=== PATIENT | female | born 1930 | race Two or more races ===

== ENCOUNTER 2018-04-01 17:08 | Inpatient (IN) | payer MEDICARE, MEDICAID ==
[~2018-04-01] VITALS: Ht 170.2 cm; Wt 52.6 kg
[2018-04-01 17:15] VITALS: BP 134/74
[2018-04-01] MEDS ORDERED: levETIRAcetam 500 MG in D5W 110 ML IV ONE (17:15)
--- NOTE | 2018-04-01 17:21 | Emergency Room Report ---
History of Present Illness General Chief Complaint: Seizure Source: EMS, Caregiver Present Illness HPI The patient was brought in for seizure. According to caregiver this lasted 10 minutes. She has a prior history of seizures. She is supposed be on Keppra. Last seizure was one year ago. Paramedics checked a blood glucose which was 170 in the field. They assessed her [place] coma scale at 4 (1, 1, 3). Usually according to the housing director she is awake and alert. There is no head trauma or incontinence. There is no history of fever, vomiting, cough. No further history is available. Patient with dementia. H/O diabetes. Allergies: Uncoded Allergies: PENICILLIN (Allergy, Unknown, 04/01/18) Patient History Limited by: medical condition Past Medical History: see triage record Social History: Denies: smoking, alcohol use Social History Narrative at home with housing director Reviewed Nursing Documentation: PMH: Agreed; PSxH: Agreed Nursing Documentation-PMH Hx Diabetes: Yes Review of Systems All Other Systems: limited Physical Exam Vital Signs Date Time Temp Pulse Resp B/P (MAP) Pulse Ox O2 Delivery O2 Flow Rate FiO2 04/01/18 16:59 60 16 122/43 97 Room Air Sp02 EP Interpretation: reviewed, normal General Appearance: Chronically Ill, Postictal Head: normocephalic, atraumatic Eyes: bilateral eye normal inspection ENT: moist mucus membranes - poor dentition, no lingual trauma Neck: supple, no bony tend Respiratory: chest non-tender, lungs clear, normal breath sounds Cardiovascular #1: regular rate, rhythm Cardiovascular #2: 2+ radial (L) Gastrointestinal: normal inspection, soft, decreased bowel sounds Musculoskeletal: back normal, other - withdraws from pain all 4 Neurologic: responsive, motor strength/tone normal, DTRs symmetric, sensory intact Psychiatric: other - post ictal Skin: normal inspection, other - sacral decubitus stage 2 Medical Decision Making Diagnostic Impression: Primary Impression: Seizure Additional Impressions: Prolonged postictal period UTI (urinary tract infection) Qualified Codes: N30.00 - Acute cystitis without hematuria ER Course Patient presents with seizure. She has a history of this. She will be evaluated with CT the head, chest x-ray, labs and EKG. 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 Differential includes bleed, breakthrough seizure, noncompliance, electrolyte abnormality and aspiration. Most likely the patient will need to be observed in the hospital. EKG without injury. CXR no infiltrates. Labs with pyuria. CT with chronic changes. Rocephin ordered. Patient still not baseline according to daughter. Evaluated by Dr. Crain in ED. Admit telemetry. Laboratory Tests Test 04/01/18 17:34 04/01/18 18:42 04/01/18 18:44 White Blood Count 8.4 K/UL (4.8-10.8) Red Blood Count 4.54 M/UL (4.20-5.40) Hemoglobin 13.2 G/DL (12.0-16.0) Hematocrit 39.4 % (37.0-47.0) Mean Corpuscular Volume 87 FL (80-99) Mean Corpuscular Hemoglobin 29.2 PG (27.0-31.0) Mean Corpuscular Hemoglobin Concent 33.6 G/DL (32.0-36.0) Red Cell Distribution Width 14.0 % (11.6-14.8) Platelet Count 235 K/UL (150-450) Mean Platelet Volume 6.5 FL (6.5-10.1) Neutrophils (%) (Auto) 58.7 % (45.0-75.0) Lymphocytes (%) (Auto) 27.6 % (20.0-45.0) Monocytes (%) (Auto) 10.5 % (1.0-10.0) H Eosinophils (%) (Auto) 1.9 % (0.0-3.0) Basophils (%) (Auto) 1.4 % (0.0-2.0) Sodium Level 137 MMOL/L (136-145) Potassium Level 4.4 MMOL/L (3.5-5.1) Chloride Level 101 MMOL/L (98-107) Carbon Dioxide Level 30 MMOL/L (21-32) Anion Gap 6 mmol/L (5-15) Blood Urea Nitrogen 19 mg/dL (7-18) H Creatinine 0.9 MG/DL (0.55-1.30) Estimate Glomerular Filtration Rate mL/min (>60) Glucose Level 172 MG/DL (74-106) H Calcium Level 10.1 MG/DL (8.5-10.1) Total Bilirubin 0.4 MG/DL (0.2-1.0) Aspartate Amino Transferase (AST) 24 U/L (15-37) Alanine Aminotransferase (ALT) 12 U/L (12-78) Alkaline Phosphatase 78 U/L (46-116) Total Creatine Kinase 66 U/L (26-308) Troponin I 0.080 ng/mL (0.000-0.056) Total Protein 8.6 G/DL (6.4-8.2) H Albumin 3.9 G/DL (3.4-5.0) Globulin 4.7 g/dL Albumin/Globulin Ratio 0.8 (1.0-2.7) L Salicylates Level 2.9 ug/mL (2.8-20) Acetaminophen Level < 2 MCG/ML (10-30) L Serum Alcohol < 3 mg/dL Urine Color Pale yellow Urine Appearance Cloudy Urine pH 6 (4.5-8.0) Urine Specific [place] 1.020 (1.005-1.035) Urine Protein 3+ (NEGATIVE) H Urine Glucose (UA) Negative (NEGATIVE) Urine Ketones 1+ (NEGATIVE) H Urine Occult Blood 5+ (NEGATIVE) H Urine Nitrite Negative (NEGATIVE) Urine Bilirubin Negative (NEGATIVE) Urine Urobilinogen Normal MG/DL (0.0-1.0) Urine Leukocyte Esterase 2+ (NEGATIVE) H Urine RBC Tntc /HPF (0 - 2) H Urine WBC Tntc /HPF (0 - 2) H Urine Squamous Epithelial Cells Few /LPF (NONE/OCC) Urine Bacteria Moderate /HPF (NONE) H Urine Opiates Screen Negative (NEGATIVE) Urine Barbiturates Screen Negative (NEGATIVE) Phencyclidine (PCP) Screen Negative (NEGATIVE) Urine Amphetamines Screen Negative (NEGATIVE) Urine Benzodiazepines Screen Negative (NEGATIVE) Urine Cocaine Screen Negative (NEGATIVE) Urine Marijuana (THC) Screen Negative (NEGATIVE) EKG Diagnostic Results Rate: normal Rhythm: NSR ST Segments: no acute changes Rhythm Strip Diag. Results EP Interpretation: yes Rhythm: NSR, no PVC's, no ectopy Chest X-Ray Diagnostic Results Chest X-Ray Diagnostic Results : Chest X-Ray Ordered: Yes # of Views/Limited/Complete: 1 View Indication: Other EP Interpretation: Yes Interpretation: no consolidation, no effusion, no pneumothorax Impression: No acute disease Electronically Signed by: Jake Mahoney MD CT/MRI/US Diagnostic Results CT/MRI/US Diagnostic Results : Imaging Test Ordered: head Impression chronic changes Last Vital Signs Date Time Temp Pulse Resp B/P (MAP) Pulse Ox O2 Delivery O2 Flow Rate FiO2 04/02/18 00:00 60 04/01/18 21:00 98.1 18 141/77 96 98.1 04/01/18 20:03 Room Air Status: improved Disposition: ADMITTED INPATIENT Condition: Serious Jake Mahoney M.D. Apr 01, 2018 17:21
[2018-04-01 17:49] LABS: BASOPHILS % (AUTO) 1.4 % (0.0-2.0); EOSINOPHILS % (AUTO) 1.9 % (0.0-3.0); HEMATOCRIT 39.4 % (37.0-47.0); HEMOGLOBIN 13.2 G/DL (12.0-16.0); LYMPHOCYTES % (AUTO) 27.6 % (20.0-45.0); MEAN CORPUSCULAR VOLUME 87 FL (80-99); MONOCYTES % (AUTO) 10.5 % (1.0-10.0); NEUTROPHILS % (AUTO) 58.7 % (45.0-75.0); PLATELET COUNT 235 K/UL (150-450); RED BLOOD COUNT 4.54 M/UL (4.20-5.40); WHITE BLOOD COUNT 8.4 K/UL (4.8-10.8)
[2018-04-01 19:04] LABS: APPEARANCE,URINE CLOUDY; BILIRUBIN, URINE NEGATIVE (NEGATIVE); COLOR,URINE PALE YELLOW; GLUCOSE, URINE (UA) NEGATIVE (NEGATIVE); KETONES,URINE 1+ (NEGATIVE); LEUKOCYTE ESTERASE ,URINE 2+ (NEGATIVE); NITRITE,URINE NEGATIVE (NEGATIVE); PH,URINE 6 (4.5-8.0); PROTEIN,URINE 3+ (NEGATIVE); UROBILINOGEN,URINE NORMAL MG/DL (0.0-1.0)
[2018-04-01 19:17] LABS: ANION GAP 6 mmol/L (5-15); BLOOD UREA NITROGEN 19 mg/dL (7-18); CALCIUM 10.1 MG/DL (8.5-10.1); CARBON DIOXIDE 30 MMOL/L (21-32); CHLORIDE 101 MMOL/L (98-107); CREATININE 0.9 MG/DL (0.55-1.30); POTASSIUM 4.4 MMOL/L (3.5-5.1); SODIUM 137 MMOL/L (136-145)
[2018-04-01 19:25] LABS: ALANINE AMINOTRANSFERASE 12 U/L (12-78); ALBUMIN 3.9 G/DL (3.4-5.0); ALBUMIN/GLOBULIN RATIO 0.8 (1.0-2.7); ALKALINE PHOSPHATASE 78 U/L (46-116); ASPARTATE AMINO TRANSFERASE 24 U/L (15-37); BILIRUBIN,TOTAL 0.4 MG/DL (0.2-1.0); CREATINE KINASE 66 U/L (26-308)
[2018-04-01] MEDS ORDERED: cefTRIAXone 1 GM in D5W 55 ML IVPB ONE (19:30)
[2018-04-01 20:03] VITALS: BP 141/68
[2018-04-01 21:00] VITALS: BP 141/77
[2018-04-01] MEDS ORDERED: Miralax 17gm pkt ORAL PRN (22:15)
[2018-04-01] MEDS ORDERED: Acetaminophen 650 MG SUPP RECTAL PRN ×2 (22:15)
--- NOTE | 2018-04-01 22:18 | History and Physical ---
History of Present Illness General Date patient seen: Apr 01, 2018 Time patient seen: 18:00 Reason for Hospitalization: Seizure Present Illness HPI 87y/o female with pmh of DM2, HTN, HLD, TIA, advanced dementia, seizure d/o (on keppra) who presents with seizure. According to caregiver who witnessed episode , pt with diffuse body jerking for abt 10min. Afterwards pt somnolent/ lethargic. At baseline pt is A&Ox1 but able to respond to simple questions and follow simple commands. Per daughter, pt with h/o seizure d/o and last seizure was abt 1-2 years ago. Pt had been stable on keppra 500mg BID since. No reports of f/c, n/v, d//c, chest pain, SOB, head trauma, tongue biting, urinary/bowel incontinence. Pt had been experiencing increased R knee pain lately 2/2 arthritis. Pt normally ambulates minimally and only with assistance of another person. In ED, pt given keppra 500mg IV. PMH: as above Social history: lives w/ daughter, has caregiver during day, no reports of T/E/D FMH: [place] Allergies: Uncoded Allergies: PENICILLIN (Allergy, Unknown, 04/01/18) Patient History History Provided By: Patient, Family Member, Medical Record Healthcare decision maker Resuscitation status Advanced Directive on File Review of Systems ROS Narrative Unable to obtain has pt somnolent/lethargic Physical Exam Physical Exam Narrative General: somnolent, minimally arousable Head: normocephalic, without obvious abnormality, atraumatic Eyes: conjunctivae/corneas clear. PERRL, EOM's intact Throat: lips, mucosa, and tongue normal. MMM Neck: supple, symmetrical, trachea midline, and no JVD Lungs: clear to auscultation bilaterally Heart: regular rate and rhythm, S1, S2 normal, no murmur, click, rub or gallop Abdomen: soft, non-tender, non-distended, bowel sounds normal Extremities: extremities normal, atraumatic, no cyanosis or edema Pulses: 2+ and symmetric Skin: skin color, texture, turgor normal; no rashes or lesions Neurologic: grossly normal, no focal deficits Last 24 Hour Vital Signs Date Time Temp Pulse Resp B/P (MAP) Pulse Ox O2 Delivery O2 Flow Rate FiO2 04/01/18 20:03 63 16 141/68 98 Room Air 04/01/18 17:15 86 33 Room Air 04/01/18 17:15 85 17 134/74 99 Room Air 04/01/18 16:59 60 16 122/43 97 Room Air Laboratory Tests Test 04/01/18 17:34 04/01/18 18:42 04/01/18 18:44 White Blood Count 8.4 K/UL (4.8-10.8) Red Blood Count 4.54 M/UL (4.20-5.40) Hemoglobin 13.2 G/DL (12.0-16.0) Hematocrit 39.4 % (37.0-47.0) Mean Corpuscular Volume 87 FL (80-99) Mean Corpuscular Hemoglobin 29.2 PG (27.0-31.0) Mean Corpuscular Hemoglobin Concent 33.6 G/DL (32.0-36.0) Red Cell Distribution Width 14.0 % (11.6-14.8) Platelet Count 235 K/UL (150-450) Mean Platelet Volume 6.5 FL (6.5-10.1) Neutrophils (%) (Auto) 58.7 % (45.0-75.0) Lymphocytes (%) (Auto) 27.6 % (20.0-45.0) Monocytes (%) (Auto) 10.5 % (1.0-10.0) H Eosinophils (%) (Auto) 1.9 % (0.0-3.0) Basophils (%) (Auto) 1.4 % (0.0-2.0) Sodium Level 137 MMOL/L (136-145) Potassium Level 4.4 MMOL/L (3.5-5.1) Chloride Level 101 MMOL/L (98-107) Carbon Dioxide Level 30 MMOL/L (21-32) Anion Gap 6 mmol/L (5-15) Blood Urea Nitrogen 19 mg/dL (7-18) H Creatinine 0.9 MG/DL (0.55-1.30) Estimat Glomerular Filtration Rate mL/min (>60) Glucose Level 172 MG/DL (74-106) H Calcium Level 10.1 MG/DL (8.5-10.1) Total Bilirubin 0.4 MG/DL (0.2-1.0) Aspartate Amino Transf (AST/SGOT) 24 U/L (15-37) Alanine Aminotransferase (ALT/SGPT) 12 U/L (12-78) Alkaline Phosphatase 78 U/L (46-116) Total Creatine Kinase 66 U/L (26-308) Troponin I 0.080 ng/mL (0.000-0.056) Total Protein 8.6 G/DL (6.4-8.2) H Albumin 3.9 G/DL (3.4-5.0) Globulin 4.7 g/dL Albumin/Globulin Ratio 0.8 (1.0-2.7) L Salicylates Level 2.9 ug/mL (2.8-20) Acetaminophen Level < 2 MCG/ML (10-30) L Serum Alcohol < 3 mg/dL Urine Color Pale yellow Urine Appearance Cloudy Urine pH 6 (4.5-8.0) Urine Specific [place] 1.020 (1.005-1.035) Urine Protein 3+ (NEGATIVE) H Urine Glucose (UA) Negative (NEGATIVE) Urine Ketones 1+ (NEGATIVE) H Urine Occult Blood 5+ (NEGATIVE) H Urine Nitrite Negative (NEGATIVE) Urine Bilirubin Negative (NEGATIVE) Urine Urobilinogen Normal MG/DL (0.0-1.0) Urine Leukocyte Esterase 2+ (NEGATIVE) H Urine RBC Tntc /HPF (0 - 2) H Urine WBC Tntc /HPF (0 - 2) H Urine Squamous Epithelial Cells Few /LPF (NONE/OCC) Urine Bacteria Moderate /HPF (NONE) H Urine Opiates Screen Negative (NEGATIVE) Urine Barbiturates Screen Negative (NEGATIVE) Phencyclidine (PCP) Screen Negative (NEGATIVE) Urine Amphetamines Screen Negative (NEGATIVE) Urine Benzodiazepines Screen Negative (NEGATIVE) Urine Cocaine Screen Negative (NEGATIVE) Urine Marijuana (THC) Screen Negative (NEGATIVE) Height (Feet): 5 Height (Inches): 8.00 Weight (Pounds): 130 Medications Current Medications Medications (Trade) Dose Ordered Sig/Nas Route PRN Reason Start Time Stop Time Status Last Admin Dose Admin Acetaminophen (Tylenol) 650 mg Q4H PRN ORAL Mild Pain (Pain Scale 1-3) 04/01/18 22:15 05/01/18 22:14 UNV Acetaminophen (Tylenol) 650 mg Q4H PRN ORAL fever 04/01/18 22:15 05/01/18 22:14 UNV Acetaminophen (Tylenol) 650 mg Q4H PRN RECTAL Mild Pain (Pain Scale 1-3) 04/01/18 22:15 05/01/18 22:14 UNV Acetaminophen (Tylenol) 650 mg Q4H PRN RECTAL fever 04/01/18 22:15 05/01/18 22:14 UNV Aspirin (Ecotrin) 81 mg DAILY ORAL 04/02/18 09:00 05/02/18 08:59 UNV Bisacodyl (Dulcolax) 10 mg DAILYPRN PRN RECTAL Constipation 04/01/18 22:15 05/01/18 22:14 UNV Dextrose (Dextrose 50%) 25 ml STAT PRN IV Hypoglycemia 04/01/18 22:15 05/01/18 22:14 UNV Dextrose (Dextrose 50%) 50 ml STAT PRN IV Hypoglycemia 04/01/18 22:15 05/01/18 22:14 UNV Docusate Sodium (Colace) 100 mg EVERY 12 HOURS ORAL 04/02/18 09:00 05/02/18 08:59 UNV Heparin Sodium (Porcine) (Heparin 5000 units/ml) 5,000 units EVERY 12 HOURS SUBQ 04/02/18 09:00 05/02/18 08:59 UNV Levetiracetam 100 ml @ 400 mls/hr Q12HR ONCE IVPB 04/02/18 09:00 04/02/18 09:14 UNV Ondansetron HCl (Zofran) 4 mg Q6H PRN IVP Nausea & Vomiting 04/01/18 22:15 05/01/18 22:14 UNV Polyethylene Glycol (Miralax) 17 gm DAILYPRN PRN ORAL Constipation 04/01/18 22:15 05/01/18 22:14 UNV Pravastatin Sodium (Pravachol) 40 mg BEDTIME ORAL 04/02/18 21:00 05/02/18 20:59 UNV Sodium Chloride 1,000 ml @ 150 mls/hr Q6H40M IV 04/01/18 17:15 05/01/18 17:14 04/01/18 18:00 Assessment/Plan Problem List: (1) Breakthrough seizure ICD Codes: G40.919 - Epilepsy, unspecified, intractable, without status epilepticus SNOMED: 273489908 (2) Toxic metabolic encephalopathy Assessment & Plan: likely 2/2 postictal state vs UTI ICD Codes: G92 - Toxic encephalopathy SNOMED: 387684776 (3) UTI (urinary tract infection) ICD Codes: N39.0 - Urinary tract infection, site not specified SNOMED: 41206252 Qualifiers: Qualified Codes: N30.00 - Acute cystitis without hematuria (4) Seizure disorder ICD Codes: G40.909 - Epilepsy, unspecified, not intractable, without status epilepticus SNOMED: 028423855 (5) Advanced dementia ICD Codes: F03.90 - Unspecified dementia without behavioral disturbance SNOMED: 19311546 (6) HTN (hypertension) ICD Codes: I10 - Essential (primary) hypertension SNOMED: 45124847 (7) HLD (hyperlipidemia) ICD Codes: E78.5 - Hyperlipidemia, unspecified SNOMED: 90961590 (8) H/O TIA (transient ischemic attack) and stroke ICD Codes: Z86.73 - Personal history of transient ischemic attack (TIA), and cerebral infarction without residual deficits SNOMED: 299727348, 866657209, 970447965 (9) H/o TIA Status: stable Assessment/Plan Admit inpt Neurology Dr. Joseph not available until Wednesday Cont keppra 500mg IV BID for now CT head--prelim read neg, f/u final read Consider MRI brain, EEG Check TSH, B12, folate, vit D Empiric ceftriaxone for UTI (04/01-) F/u urine culture Cont home meds including ASA, statin Pain control, bowel regimen Supportive care PT/OT DVT Prophylaxis: SCD, HSQ Code Status: Full Hospital Classification Declaration: Based on this initial evaluation, and depending on the patient's clinical course, I anticipate that this patient will require hospitalization for 1-3 days for AMS, seizure, and close respiratory/ hemodynamic monitoring. Disposition: Once the patient is stable to leave the hospital, I anticipate the patient will likely be discharged to the following environment: home with HH vs SNF I spent 72 minutes on this patient's case, and >50% was dedicated to counseling and/or care coordination. Discussed with patient/family, nursing staff, SW/CM, ER physician regarding clinical status, treatment course, and disposition planning. Time of note may not reflect time of encounter. Breann Sanchez M.D. 8, 2018 22:18
[2018-04-01] MEDS: Docusate 100mg cap ORAL SCH (22:25)
[2018-04-02] VITALS: BP 143/73
[2018-04-02] MEDS: Heparin 5000 units/ml inj SUBQ SCH ×3 (00:59→20:33)
[2018-04-02 04:00] VITALS: BP 149/67
[2018-04-02 08:00] VITALS: BP 143/75
[2018-04-02 08:06] LABS: ANION GAP 6 mmol/L (5-15); BLOOD UREA NITROGEN 14 mg/dL (7-18); CALCIUM 9.7 MG/DL (8.5-10.1); CARBON DIOXIDE 29 MMOL/L (21-32); CHLORIDE 106 MMOL/L (98-107); CHOLESTEROL 223 MG/DL (< 200); CREATININE 0.7 MG/DL (0.55-1.30); HDL CHOLESTEROL 92 MG/DL (40-60); POTASSIUM 3.9 MMOL/L (3.5-5.1); SODIUM 141 MMOL/L (136-145); TRIGLYCERIDES 39 MG/DL (30-150)
[2018-04-02 08:44] LABS: BASOPHILS % (AUTO) 1.6 % (0.0-2.0); EOSINOPHILS % (AUTO) 2.9 % (0.0-3.0); HEMATOCRIT 37.1 % (37.0-47.0); HEMOGLOBIN 12.5 G/DL (12.0-16.0); LYMPHOCYTES % (AUTO) 34.6 % (20.0-45.0); MEAN CORPUSCULAR VOLUME 87 FL (80-99); MONOCYTES % (AUTO) 13.1 % (1.0-10.0); NEUTROPHILS % (AUTO) 47.9 % (45.0-75.0); PLATELET COUNT 195 K/UL (150-450); RED BLOOD COUNT 4.28 M/UL (4.20-5.40); RED CELL DISTRIBUTION WIDTH 13.9 % (11.6-14.8); WHITE BLOOD COUNT 5.7 K/UL (4.8-10.8)
[2018-04-02] MEDS: Docusate 100mg cap ORAL SCH ×2 (09:38→20:30)
[2018-04-02] MEDS: Aspirin EC 81mg tab ORAL SCH (09:38)
[2018-04-02] MEDS: cefTRIAXone 1 GM in D5W 110 ML IVPB SCH (09:38)
[2018-04-02] MEDS: levETIRAcetam 500mg/NS100ml 100 ML IVPB SCH ×2 (10:58→20:31)
[2018-04-02 12:00] VITALS: BP 123/61
--- NOTE | 2018-04-02 12:10 | Consultation ---
History of Present Illness General Date patient seen: Apr 02, 2018 Time patient seen: 12:36 Chief Complaint: Seizure Present Illness HPI 87y/o female with DM2, HTN, HLD, TIA, advanced dementia, seizure d/o (on keppra ) who presents with seizure and urosepsis. Cardiology consulted for elevated troponin. TTE with preserved LV function but severe pulmonary hypertension Allergies: Uncoded Allergies: PENICILLIN (Allergy, Unknown, 04/01/18) Patient History Limited by: age, medical condition Healthcare decision maker Resuscitation status Full Code Advanced Directive on File Review of Systems Constitutional: Reports: no symptoms Eye: Reports: no symptoms ENT: Reports: no symptoms Respiratory: Reports: no symptoms Cardiovascular: Reports: no symptoms Gastrointestinal: Reports: no symptoms Genitourinary: Reports: no symptoms Musculoskeletal: Reports: no symptoms Skin: Reports: no symptoms Psychiatric: Reports: no symptoms Neurological: Reports: see HPI Endocrine: Reports: no symptoms Hematologic/Lymphatic: Reports: no symptoms Physical Exam General Appearance: no apparent distress Lines, tubes and drains: peripheral HEENT: normocephalic Neck: non-tender Respiratory/Chest: chest wall non-tender Cardiovascular/Chest: normal peripheral pulses Abdomen: normal bowel sounds Extremities: normal range of motion Skin Exam: normal pigmentation 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: 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 II-XII grossly normal Last 24 Hour Vital Signs Date Time Temp Pulse Resp B/P (MAP) Pulse Ox O2 Delivery O2 Flow Rate FiO2 04/02/18 04:00 97.0 62 20 149/67 97 97.0 04/02/18 04:00 60 04/02/18 00:00 60 04/02/18 00:00 97.6 60 18 143/73 96 97.6 04/01/18 21:00 98.1 75 18 141/77 96 98.1 04/01/18 20:15 63 16 141/68 98 Room Air 04/01/18 20:03 63 16 141/68 98 Room Air 04/01/18 17:15 86 33 Room Air 04/01/18 17:15 85 17 134/74 99 Room Air 04/01/18 16:59 60 16 122/43 97 Room Air Intake and Output 04/01/18 04/02/18 19:00 07:00 Intake Total 0 ml 1250 ml Output Total 725 ml Balance 0 ml 525 ml Intake Oral 0 ml 0 ml IV Total 1250 ml Output Urine Total 725 ml Laboratory Tests Test 04/01/18 17:34 04/01/18 18:42 04/01/18 18:44 04/02/18 06:45 White Blood Count 8.4 K/UL (4.8-10.8) 5.7 K/UL (4.8-10.8) Red Blood Count 4.54 M/UL (4.20-5.40) 4.28 M/UL (4.20-5.40) Hemoglobin 13.2 G/DL (12.0-16.0) 12.5 G/DL (12.0-16.0) Hematocrit 39.4 % (37.0-47.0) 37.1 % (37.0-47.0) Mean Corpuscular Volume 87 FL (80-99) 87 FL (80-99) Mean Corpuscular Hemoglobin 29.2 PG (27.0-31.0) 29.3 PG (27.0-31.0) Mean Corpuscular Hemoglobin Concent 33.6 G/DL (32.0-36.0) 33.8 G/DL (32.0-36.0) Red Cell Distribution Width 14.0 % (11.6-14.8) 13.9 % (11.6-14.8) Platelet Count 235 K/UL (150-450) 195 K/UL (150-450) Mean Platelet Volume 6.5 FL (6.5-10.1) 7.0 FL (6.5-10.1) Neutrophils (%) (Auto) 58.7 % (45.0-75.0) 47.9 % (45.0-75.0) Lymphocytes (%) (Auto) 27.6 % (20.0-45.0) 34.6 % (20.0-45.0) Monocytes (%) (Auto) 10.5 % (1.0-10.0) H 13.1 % (1.0-10.0) H Eosinophils (%) (Auto) 1.9 % (0.0-3.0) 2.9 % (0.0-3.0) Basophils (%) (Auto) 1.4 % (0.0-2.0) 1.6 % (0.0-2.0) Sodium Level 137 MMOL/L (136-145) 141 MMOL/L (136-145) Potassium Level 4.4 MMOL/L (3.5-5.1) 3.9 MMOL/L (3.5-5.1) Chloride Level 101 MMOL/L (98-107) 106 MMOL/L (98-107) Carbon Dioxide Level 30 MMOL/L (21-32) 29 MMOL/L (21-32) Anion Gap 6 mmol/L (5-15) 6 mmol/L (5-15) Blood Urea Nitrogen 19 mg/dL (7-18) H 14 mg/dL (7-18) Creatinine 0.9 MG/DL (0.55-1.30) 0.7 MG/DL (0.55-1.30) Estimat Glomerular Filtration Rate mL/min (>60) mL/min (>60) Glucose Level 172 MG/DL (74-106) H 120 MG/DL (74-106) H Calcium Level 10.1 MG/DL (8.5-10.1) 9.7 MG/DL (8.5-10.1) Total Bilirubin 0.4 MG/DL (0.2-1.0) Aspartate Amino Transf (AST/SGOT) 24 U/L (15-37) Alanine Aminotransferase (ALT/SGPT) 12 U/L (12-78) Alkaline Phosphatase 78 U/L (46-116) Total Creatine Kinase 66 U/L (26-308) Troponin I 0.080 ng/mL (0.000-0.056) Total Protein 8.6 G/DL (6.4-8.2) H Albumin 3.9 G/DL (3.4-5.0) Globulin 4.7 g/dL Albumin/Globulin Ratio 0.8 (1.0-2.7) L Salicylates Level 2.9 ug/mL (2.8-20) Acetaminophen Level < 2 MCG/ML (10-30) L Serum Alcohol < 3 mg/dL Urine Color Pale yellow Urine Appearance Cloudy Urine pH 6 (4.5-8.0) Urine Specific [place] 1.020 (1.005-1.035) Urine Protein 3+ (NEGATIVE) H Urine Glucose (UA) Negative (NEGATIVE) Urine Ketones 1+ (NEGATIVE) H Urine Occult Blood 5+ (NEGATIVE) H Urine Nitrite Negative (NEGATIVE) Urine Bilirubin Negative (NEGATIVE) Urine Urobilinogen Normal MG/DL (0.0-1.0) Urine Leukocyte Esterase 2+ (NEGATIVE) H Urine RBC Tntc /HPF (0 - 2) H Urine WBC Tntc /HPF (0 - 2) H Urine Squamous Epithelial Cells Few /LPF (NONE/OCC) Urine Bacteria Moderate /HPF (NONE) H Urine Opiates Screen Negative (NEGATIVE) Urine Barbiturates Screen Negative (NEGATIVE) Phencyclidine (PCP) Screen Negative (NEGATIVE) Urine Amphetamines Screen Negative (NEGATIVE) Urine Benzodiazepines Screen Negative (NEGATIVE) Urine Cocaine Screen Negative (NEGATIVE) Urine Marijuana (THC) Screen Negative (NEGATIVE) Hemoglobin A1c 6.9 % (4.3-6.0) H Magnesium Level 2.0 MG/DL (1.8-2.4) Triglycerides Level 39 MG/DL (30-150) Cholesterol Level 223 MG/DL (< 200) H LDL Cholesterol 127 mg/dL (<100) H HDL Cholesterol 92 MG/DL (40-60) H Cholesterol/HDL Ratio 2.4 (3.3-4.4) L Vitamin B12 Level 1308 PG/ML (193-986) H Vitamin D 25-Hydroxy Pending 25-Hydroxy Vitamin D2 Pending 25-Hydroxy Vitamin D3 Pending Folate 40.9 NG/ML (8.6-58.9) Thyroid Stimulating Hormone (TSH) 1.666 uiU/mL (0.358-3.740) Test 04/02/18 08:50 Troponin I 0.093 ng/mL (0.000-0.056) Microbiology Date/Time Source Procedure Growth Status 04/01/18 18:44 Urine,Clean Catch Urine Culture - Preliminary Gram Negative Ermias Resulted Height (Feet): 5 Height (Inches): 7.00 Weight (Pounds): 116 Medications Current Medications Medications (Trade) Dose Ordered Sig/Nas Route PRN Reason Start Time Stop Time Status Last Admin Dose Admin Acetaminophen (Tylenol) 650 mg Q4H PRN ORAL Mild Pain (Pain Scale 1-3) 04/01/18 22:15 05/01/18 22:14 Acetaminophen (Tylenol) 650 mg Q4H PRN ORAL fever 04/01/18 22:15 05/01/18 22:14 Acetaminophen (Tylenol) 650 mg Q4H PRN RECTAL Mild Pain (Pain Scale 1-3) 04/01/18 22:15 05/01/18 22:14 Acetaminophen (Tylenol) 650 mg Q4H PRN RECTAL fever 04/01/18 22:15 05/01/18 22:14 Aspirin (Ecotrin) 81 mg DAILY ORAL 04/02/18 09:00 05/02/18 08:59 04/02/18 09:38 Bisacodyl (Dulcolax) 10 mg DAILYPRN PRN RECTAL Constipation 04/01/18 22:15 05/01/18 22:14 Ceftriaxone Sodium 1 gm/ Dextrose 110 ml @ 220 mls/hr Q24H IVPB 04/02/18 09:00 04/09/18 08:59 04/02/18 09:38 Dextrose (Dextrose 50%) 25 ml STAT PRN IV Hypoglycemia 04/01/18 22:15 05/01/18 22:14 Dextrose (Dextrose 50%) 50 ml STAT PRN IV Hypoglycemia 04/01/18 22:15 05/01/18 22:14 Docusate Sodium (Colace) 100 mg EVERY 12 HOURS ORAL 04/01/18 22:25 05/01/18 22:24 04/02/18 09:38 Heparin Sodium (Porcine) (Heparin 5000 units/ml) 5,000 units EVERY 12 HOURS SUBQ 04/01/18 22:24 05/01/18 22:23 04/02/18 09:39 Levetiracetam 100 ml @ 400 mls/hr Q12HR IVPB 04/02/18 09:00 05/02/18 08:59 04/02/18 10:58 Ondansetron HCl (Zofran) 4 mg Q6H PRN IVP Nausea & Vomiting 04/01/18 22:15 05/01/18 22:14 Polyethylene Glycol (Miralax) 17 gm DAILYPRN PRN ORAL Constipation 04/01/18 22:15 05/01/18 22:14 Pravastatin Sodium (Pravachol) 40 mg BEDTIME ORAL 04/01/18 22:27 05/01/18 22:26 Sodium Chloride 1,000 ml @ 150 mls/hr Q6H40M IV 04/01/18 17:15 05/01/18 17:14 04/02/18 07:45 Assessment/Plan Status: stable Assessment/Plan 87y/o female with pmh of DM2, HTN, HLD, TIA, advanced dementia, seizure d/o (on keppra) who presents with seizure 1) Trend troponin/EKG 2) No heparin gtt - no chest pain currently 3) Aspirin 4) Statin 5) IV antibiotics for UTI 6) Continue Keppra 7) TTE reviewed, normal LV function but severe pulmonary hypertension, check CXR and BNP 8) No indication for cardiac cath at this time 9) Outpatient stress test Jake Fernandez M.D. Apr 02, 2018 12:10
[2018-04-02 20:00] VITALS: BP 118/79
[2018-04-03] VITALS: BP 165/81
[2018-04-03 04:00] VITALS: BP 142/74
[2018-04-03 08:00] VITALS: BP 121/70
[2018-04-03] MEDS: levETIRAcetam 500mg/NS100ml 100 ML IVPB SCH ×2 (09:02→20:37)
[2018-04-03] MEDS: Heparin 5000 units/ml inj SUBQ SCH ×2 (09:03→20:34)
[2018-04-03] MEDS: Aspirin EC 81mg tab ORAL SCH (09:10)
[2018-04-03] MEDS: cefTRIAXone 1 GM in D5W 110 ML IVPB SCH (09:10)
[2018-04-03] MEDS: Docusate 100mg cap ORAL SCH ×2 (09:10→20:30)
--- NOTE | 2018-04-03 10:34 | Cardiology Progress Note ---
Assessment/Plan Assessment/Plan 87y/o female with pmh of DM2, HTN, HLD, TIA, advanced dementia, seizure d/o (on keppra) who presents with seizure 1) Trend troponin/EKG 2) No heparin gtt - no chest pain currently 3) Aspirin 4) Statin 5) IV antibiotics for UTI 6) Continue Keppra 7) TTE reviewed, normal LV function but severe pulmonary hypertension, check CXR and BNP 8) No indication for cardiac cath at this time 9) Outpatient stress test 10 Recommend mild diuresis for elevated filling pressures and restrictive diastolic dysfunction Subjective Respiratory: Reports: no symptoms Gastrointestinal/Abdominal: Reports: no symptoms Genitourinary: Reports: no symptoms Subjective No acute events. Tolerated PO. Family at bedside, no seizures Troponin mildly elevated. Echo with Grade III diastolic dysfunction and PAH Objective Last 24 Hour Vital Signs Date Time Temp Pulse Resp B/P (MAP) Pulse Ox O2 Delivery O2 Flow Rate FiO2 04/03/18 08:00 97.9 59 18 121/70 98 Room Air 97.9 04/03/18 08:00 56 04/03/18 04:00 66 04/03/18 04:00 97.9 68 20 142/74 92 Room Air 97.9 04/03/18 00:00 98.4 73 20 165/81 94 Room Air 98.4 04/03/18 00:00 72 04/02/18 20:00 98.2 75 20 118/79 91 Room Air 98.2 04/02/18 20:00 72 04/02/18 16:00 71 04/02/18 12:00 58 04/02/18 12:00 97.8 63 19 123/61 98 97.8 General Appearance: no apparent distress EENT: PERRL/EOMI Neck: non-tender Rhythm: NSR, SB Cardiovascular: normal peripheral pulses Respiratory/Chest: chest wall non-tender Abdomen: normal bowel sounds Extremities: normal range of motion, non-tender Neurologic: inspector receiving II-XII grossly normal Intake and Output 04/02/18 04/03/18 19:00 07:00 Intake Total 500 ml 1720 ml Output Total 400 ml 1200 ml Balance 100 ml 520 ml Intake Oral 500 ml 120 ml IV Total 1600 ml Output Urine Total 400 ml 1200 ml Laboratory Tests Test 04/03/18 05:45 Troponin I 0.145 ng/mL (0.000-0.056) Microbiology Date/Time Source Procedure Growth Status 04/01/18 18:44 Urine,Clean Catch Urine Culture - Preliminary Gram Negative Ermias Resulted Jake Fernandez M.D. Apr 03, 2018 10:34
[2018-04-03 12:00] VITALS: BP 128/72
[2018-04-03 16:00] VITALS: BP 120/64
[2018-04-03 20:00] VITALS: BP 141/74
[2018-04-04] VITALS: BP 136/72
[2018-04-04 04:00] VITALS: BP 143/84
[2018-04-04 08:00] VITALS: BP 147/78
[2018-04-04] MEDS: Heparin 5000 units/ml inj SUBQ SCH ×2 (08:22→20:32)
[2018-04-04] MEDS: Aspirin EC 81mg tab ORAL SCH (08:22)
[2018-04-04] MEDS: cefTRIAXone 1 GM in D5W 110 ML IVPB SCH (08:23)
[2018-04-04] MEDS: Docusate 100mg cap ORAL SCH ×2 (08:23→20:30)
[2018-04-04] MEDS: levETIRAcetam 500mg/NS100ml 100 ML IVPB SCH ×2 (08:23→20:30)
[2018-04-04 12:00] VITALS: BP 123/83
--- NOTE | 2018-04-04 12:28 | General Progress Note ---
Assessment/Plan Problem List: (1) Seizure disorder ICD Codes: G40.909 - Epilepsy, unspecified, not intractable, without status epilepticus SNOMED: 649265757 (2) HTN (hypertension) ICD Codes: I10 - Essential (primary) hypertension SNOMED: 11824117 (3) HLD (hyperlipidemia) ICD Codes: E78.5 - Hyperlipidemia, unspecified SNOMED: 85003985 (4) Advanced dementia ICD Codes: F03.90 - Unspecified dementia without behavioral disturbance SNOMED: 73828621 (5) Breakthrough seizure ICD Codes: G40.919 - Epilepsy, unspecified, intractable, without status epilepticus SNOMED: 247524472 (6) Toxic metabolic encephalopathy ICD Codes: G92 - Toxic encephalopathy SNOMED: 367009669 (7) H/O TIA (transient ischemic attack) and stroke ICD Codes: Z86.73 - Personal history of transient ischemic attack (TIA), and cerebral infarction without residual deficits SNOMED: 666004209, 234310282, 705813557 (8) UTI (urinary tract infection) ICD Codes: N39.0 - Urinary tract infection, site not specified SNOMED: 67563061 Qualifiers: Qualified Codes: N30.00 - Acute cystitis without hematuria (9) Elevated troponin ICD Codes: R74.8 - Abnormal levels of other serum enzymes SNOMED: 342875340, 187138117, 515573378 Status: stable, progressing Assessment/Plan Neurology Dr. Joseph consulted, not available until Cardiology consulted, appreciate rec's Trend trops TTE with normal function but with severe pulmonary hypertension -- BNP elevated. check CXR Cont keppra 500mg IV BID for now -- on home dose of keppra 500mg BID CT head--prelim read neg, f/u final read Consider MRI brain, EEG Check TSH, B12, folate, vit D Continue ceftriaxone for UTI (04/01-) F/u urine culture -- E. coli, sensitive to ceftriaxone Cont home meds including ASA, statin LDL 127, increase to atorvastatin 80 Pain control, bowel regimen Supportive care PT/OT DVT Prophylaxis: SCD, HSQ Code Status: Full Hospital Classification Declaration: Based on this initial evaluation, and depending on the patient's clinical course, I anticipate that this patient will require hospitalization for 1-3 days for AMS, seizure, and close respiratory/ hemodynamic monitoring. Disposition: Once the patient is stable to leave the hospital, I anticipate the patient will likely be discharged to the following environment: home with HH vs SNF I spent 32 minutes on this patient's case, and >50% was dedicated to counseling and/or care coordination. Discussed with patient/family, nursing staff, SW/CM, ER physician regarding clinical status, treatment course, and disposition planning. Time of note may not reflect time of encounter. Subjective Date patient seen: Apr 04, 2018 Allergies: Uncoded Allergies: PENICILLIN (Allergy, Unknown, 04/01/18) Subjective AF, HDS continues to mumble one or two words does not appear to be in any acute distress Objective Last 24 Hour Vital Signs Date Time Temp Pulse Resp B/P (MAP) Pulse Ox O2 Delivery O2 Flow Rate FiO2 04/04/18 12:00 97.5 73 18 123/83 97 Room Air 97.5 04/04/18 08:00 97.4 65 20 147/78 98 Room Air 97.4 04/04/18 08:00 63 04/04/18 04:00 96.3 65 19 143/84 97 Room Air 96.3 04/04/18 04:00 67 04/04/18 00:00 63 04/04/18 00:00 96.6 65 18 136/72 97 Room Air 96.6 04/03/18 20:00 70 04/03/18 20:00 97.5 70 19 141/74 96 Room Air 97.5 04/03/18 16:00 65 04/03/18 16:00 98.8 58 18 120/64 96 Room Air 98.8 Intake and Output 04/03/18 04/04/18 19:00 07:00 Intake Total 2430 ml Output Total 1150 ml 500 ml Balance 1280 ml -500 ml Intake Oral 720 ml IV Total 1710 ml Output Urine Total 1150 ml 500 ml Height (Feet): 5 Height (Inches): 7.00 Weight (Pounds): 116 General Appearance: no apparent distress, lethargic EENT: PERRL/EOMI, normal ENT inspection Neck: non-tender, normal alignment, supple Cardiovascular: normal peripheral pulses, normal rate, regular rhythm Respiratory/Chest: chest wall non-tender, lungs clear, normal breath sounds Abdomen: normal bowel sounds, non tender, soft Extremities: normal range of motion, non-tender Skin: normal pigmentation, warm/dry Chiquita Del Real NP Apr 04, 2018 12:28
--- NOTE | 2018-04-04 12:43 | Cardiology Progress Note ---
Assessment/Plan Assessment/Plan 87y/o female with pmh of DM2, HTN, HLD, TIA, advanced dementia, seizure d/o (on keppra) who presents with seizure 1) Trend troponin/EKG 2) No heparin gtt - no chest pain currently 3) Aspirin 4) Statin 5) IV antibiotics for UTI 6) Continue Keppra 7) TTE reviewed, normal LV function but severe pulmonary hypertension, check CXR and BNP 8) No indication for cardiac cath at this time 9) Outpatient stress test 10 Recommend mild diuresis for elevated filling pressures and restrictive diastolic dysfunction 11) Seizure work up, MRI, EEG, neuro consult Subjective Cardiovascular: Reports: no symptoms Respiratory: Reports: no symptoms Gastrointestinal/Abdominal: Reports: no symptoms Genitourinary: Reports: no symptoms Subjective No acute events. Tolerated PO. Family at bedside, no seizures Troponin mildly elevated. Echo with Grade III diastolic dysfunction and PAH, normal LV function Objective Last 24 Hour Vital Signs Date Time Temp Pulse Resp B/P (MAP) Pulse Ox O2 Delivery O2 Flow Rate FiO2 04/04/18 12:00 97.5 73 18 123/83 97 Room Air 97.5 04/04/18 08:00 97.4 65 20 147/78 98 Room Air 97.4 04/04/18 08:00 63 04/04/18 04:00 96.3 65 19 143/84 97 Room Air 96.3 04/04/18 04:00 67 04/04/18 00:00 63 04/04/18 00:00 96.6 65 18 136/72 97 Room Air 96.6 04/03/18 20:00 70 04/03/18 20:00 97.5 70 19 141/74 96 Room Air 97.5 04/03/18 16:00 65 04/03/18 16:00 98.8 58 18 120/64 96 Room Air 98.8 General Appearance: no apparent distress EENT: normal ENT inspection Neck: non-tender Rhythm: NSR Cardiovascular: normal peripheral pulses Respiratory/Chest: chest wall non-tender Abdomen: normal bowel sounds Extremities: normal range of motion Neurologic: scrummaster II-XII grossly normal Intake and Output 04/03/18 04/04/18 19:00 07:00 Intake Total 2430 ml Output Total 1150 ml 500 ml Balance 1280 ml -500 ml Intake Oral 720 ml IV Total 1710 ml Output Urine Total 1150 ml 500 ml Microbiology Date/Time Source Procedure Growth Status 04/01/18 18:44 Urine,Clean Catch Urine Culture - Final Escherichia Coli Complete Jake Fernandez M.D. Apr 04, 2018 12:43
[2018-04-04] MEDS ORDERED: ASPIRIN-LOW81 MG ORAL (14:27)
[2018-04-04] MEDS ORDERED: VITAMIN D400 INTLU ORAL (14:27)
[2018-04-04] MEDS ORDERED: MULTIVITAMINS1 EAC2 ORAL (14:27)
[2018-04-04] MEDS ORDERED: ZINC SULFATE220 M1 ORAL (14:27)
[2018-04-04] MEDS ORDERED: KEPPRA500 M4 ORAL (14:27)
[2018-04-04] MEDS ORDERED: ASCORBIC ACID500 M3 ORAL (14:27)
[2018-04-04] MEDS ORDERED: LR 1000ml ONE (15:25)
[2018-04-04 15:31] VITALS: BP 137/68
--- NOTE | 2018-04-04 16:35 | Consultation ---
History of Present Illness General Date patient seen: Apr 04, 2018 Chief Complaint: Seizure Present Illness HPI 87y/o female with pmh of DM2, HTN, HLD, TIA, dementia, seizure d/o. The pt is a poor historian and he has impairment of memory and was anxious/ Allergies: Coded Allergies: PENICILLINS (Unverified Allergy, Unknown, 04/04/18) Uncoded Allergies: PENICILLIN (Allergy, Unknown, 04/01/18) Medication History Scheduled Ascorbic Acid (Ascorbic Acid), 500 MG ORAL DAILY, (Reported) Aspirin (Aspirin EC), 81 MG ORAL DAILY, (Reported) Levetiracetam (Keppra), 500 MG ORAL EVERY 12 HOURS, (Reported) Multivitamins* (Multivitamins*), 1 TAB ORAL BID, (Reported) Vitamin D (Vitamin D3), 2,000 UNITS ORAL DAILY, (Reported) Zinc Sulfate (Zinc Sulfate*), 220 MG ORAL DAILY, (Reported) Patient History Limited by: medical condition History Provided By: Patient, Medical Record, PMD Healthcare decision maker Resuscitation status Full Code Advanced Directive on File Past Medical/Surgical History Past Medical/Surgical History: (1) Seizure disorder (2) Seizure (3) TIA (transient ischemic attack) (4) HTN (hypertension) (5) HLD (hyperlipidemia) (6) Advanced dementia (7) Breakthrough seizure (8) Toxic metabolic encephalopathy (9) H/O TIA (transient ischemic attack) and stroke (10) H/o TIA (11) UTI (urinary tract infection) (12) Elevated troponin Review of Systems Psychiatric: Reports: prior hx, anxiety, depressed feelings Physical Exam General Appearance: WD/WN, no apparent distress, alert, confused Last 24 Hour Vital Signs Date Time Temp Pulse Resp B/P (MAP) Pulse Ox O2 Delivery O2 Flow Rate FiO2 04/04/18 16:00 57 04/04/18 15:31 97.5 62 18 137/68 97 Room Air 97.5 04/04/18 12:00 60 04/04/18 12:00 97.5 73 18 123/83 97 Room Air 97.5 04/04/18 08:00 97.4 65 20 147/78 98 Room Air 97.4 04/04/18 08:00 63 04/04/18 04:00 96.3 65 19 143/84 97 Room Air 96.3 04/04/18 04:00 67 04/04/18 00:00 63 04/04/18 00:00 96.6 65 18 136/72 97 Room Air 96.6 04/03/18 20:00 70 04/03/18 20:00 97.5 70 19 141/74 96 Room Air 97.5 Intake and Output 04/03/18 04/04/18 19:00 07:00 Intake Total 2430 ml Output Total 1150 ml 500 ml Balance 1280 ml -500 ml Intake Oral 720 ml IV Total 1710 ml Output Urine Total 1150 ml 500 ml Laboratory Tests Test 04/04/18 14:02 Pro-B-Type Natriuretic Peptide 3584 pg/mL (0-125) H Height (Feet): 5 Height (Inches): 7.00 Weight (Pounds): 116 Medications Current Medications Medications (Trade) Dose Ordered Sig/Nas Route PRN Reason Start Time Stop Time Status Last Admin Dose Admin Acetaminophen (Tylenol) 650 mg Q4H PRN ORAL Mild Pain (Pain Scale 1-3) 04/01/18 22:15 05/01/18 22:14 Acetaminophen (Tylenol) 650 mg Q4H PRN ORAL fever 04/01/18 22:15 05/01/18 22:14 Acetaminophen (Tylenol) 650 mg Q4H PRN RECTAL Mild Pain (Pain Scale 1-3) 04/01/18 22:15 05/01/18 22:14 Acetaminophen (Tylenol) 650 mg Q4H PRN RECTAL fever 04/01/18 22:15 05/01/18 22:14 Aspirin (ASA) 81 mg DAILY ORAL 04/05/18 09:00 05/05/18 08:59 Atorvastatin Calcium (Lipitor) 80 mg BEDTIME ORAL 04/04/18 21:00 05/04/18 20:59 Bisacodyl (Dulcolax) 10 mg DAILYPRN PRN RECTAL Constipation 04/01/18 22:15 05/01/18 22:14 Ceftriaxone Sodium 1 gm/ Dextrose 110 ml @ 220 mls/hr Q24H IVPB 04/02/18 09:00 04/09/18 08:59 04/04/18 08:23 Dextrose (Dextrose 50%) 25 ml STAT PRN IV Hypoglycemia 04/01/18 22:15 05/01/18 22:14 Dextrose (Dextrose 50%) 50 ml STAT PRN IV Hypoglycemia 04/01/18 22:15 05/01/18 22:14 Docusate Sodium (Colace) 100 mg EVERY 12 HOURS ORAL 04/01/18 22:25 05/01/18 22:24 04/04/18 08:23 Furosemide (Lasix) 20 mg DAILY ORAL 04/04/18 09:00 05/04/18 08:59 04/04/18 08:24 Heparin Sodium (Porcine) (Heparin 5000 units/ml) 5,000 units EVERY 12 HOURS SUBQ 04/01/18 22:24 05/01/18 22:23 04/04/18 08:22 Levetiracetam 100 ml @ 400 mls/hr Q12HR IVPB 04/02/18 09:00 05/02/18 08:59 04/04/18 08:23 Ondansetron HCl (Zofran) 4 mg Q6H PRN IVP Nausea & Vomiting 04/01/18 22:15 05/01/18 22:14 Polyethylene Glycol (Miralax) 17 gm DAILYPRN PRN ORAL Constipation 04/01/18 22:15 05/01/18 22:14 Sodium Chloride 1,000 ml @ 100 mls/hr Q10H IV 04/04/18 11:30 05/01/18 11:29 04/04/18 11:26 Assessment/Plan Assessment/Plan dementia Anxiety d/o Ativan prn Jose Armando Rodgers M.D. Apr 04, 2018 16:35
[2018-04-04] MEDS ORDERED: LORazepam 0.5mg tab ORAL PRN (16:45)
[2018-04-04 20:00] VITALS: BP 141/76
[2018-04-04] MEDS: Atorvastatin 80mg tab ORAL SCH (20:30)
[2018-04-05] VITALS (7 sets, daily range): BP systolic 124–155; BP diastolic 70–96
[2018-04-05] MEDS: D5 1/2NS 1,000 ML IV SCH (06:25)
[2018-04-05 07:42] LABS: ALANINE AMINOTRANSFERASE 15 U/L (12-78); ALBUMIN 2.5 G/DL (3.4-5.0); ALBUMIN/GLOBULIN RATIO 0.6 (1.0-2.7); ALKALINE PHOSPHATASE 64 U/L (46-116); ANION GAP 5 mmol/L (5-15); ASPARTATE AMINO TRANSFERASE 17 U/L (15-37); BILIRUBIN,TOTAL 0.3 MG/DL (0.2-1.0); BLOOD UREA NITROGEN 11 mg/dL (7-18); CALCIUM 8.9 MG/DL (8.5-10.1); CARBON DIOXIDE 24 MMOL/L (21-32); CHLORIDE 107 MMOL/L (98-107); CREATININE 0.7 MG/DL (0.55-1.30); POTASSIUM 3.8 MMOL/L (3.5-5.1); SODIUM 136 MMOL/L (136-145)
[2018-04-05 07:45] LABS: BASOPHILS % (AUTO) 0.9 % (0.0-2.0); EOSINOPHILS % (AUTO) 5.2 % (0.0-3.0); HEMATOCRIT 39.1 % (37.0-47.0); HEMOGLOBIN 12.9 G/DL (12.0-16.0); MEAN CORPUSCULAR VOLUME 88 FL (80-99); MONOCYTES % (AUTO) 9.1 % (1.0-10.0); NEUTROPHILS % (AUTO) 50.8 % (45.0-75.0); PLATELET COUNT 244 K/UL (150-450); RED BLOOD COUNT 4.45 M/UL (4.20-5.40); RED CELL DISTRIBUTION WIDTH 13.9 % (11.6-14.8); WHITE BLOOD COUNT 5.9 K/UL (4.8-10.8)
[2018-04-05] MEDS: Heparin 5000 units/ml inj SUBQ SCH ×2 (08:15→22:31)
[2018-04-05] MEDS: cefTRIAXone 1 GM in D5W 110 ML IVPB SCH (08:15)
[2018-04-05] MEDS: Docusate 100mg cap ORAL SCH ×2 (08:15→22:30)
[2018-04-05] MEDS: Aspirin Baby 81mg ORAL SCH (08:15)
[2018-04-05] MEDS: levETIRAcetam 500mg/NS100ml 100 ML IVPB SCH ×2 (08:27→22:38)
--- NOTE | 2018-04-05 13:01 | General Progress Note ---
Assessment/Plan Assessment/Plan dementia Anxiety d/o Ativan prn Subjective Date patient seen: Apr 05, 2018 Neurologic/Psychiatric: Reports: anxiety, depressed, emotional problems Allergies: Coded Allergies: PENICILLINS (Unverified Allergy, Unknown, 04/04/18) Uncoded Allergies: PENICILLIN (Allergy, Unknown, 04/01/18) Objective Last 24 Hour Vital Signs Date Time Temp Pulse Resp B/P (MAP) Pulse Ox O2 Delivery O2 Flow Rate FiO2 04/05/18 12:00 97.6 68 18 150/70 97 Room Air 97.6 04/05/18 12:00 63 04/05/18 08:00 97.6 69 18 155/96 96 Room Air 97.6 04/05/18 08:00 59 04/05/18 04:00 55 04/05/18 04:00 97.9 63 18 135/74 97 Room Air 97.9 04/05/18 00:00 59 04/05/18 00:00 97.8 55 18 139/79 100 Room Air 97.8 04/04/18 20:00 97.8 71 18 141/76 98 Room Air 97.8 04/04/18 20:00 66 04/04/18 16:00 57 04/04/18 15:31 97.5 62 18 137/68 97 Room Air 97.5 Intake and Output 04/04/18 04/05/18 19:00 07:00 Intake Total 1680 ml 1000 ml Output Total 1200 ml 800 ml Balance 480 ml 200 ml Intake Oral 360 ml IV Total 1320 ml 1000 ml Output Urine Total 1200 ml 800 ml Laboratory Tests 04/04/18 14:02: Pro-B-Type Natriuretic Peptide 3584H 04/05/18 06:20: White Blood Count 5.9, Red Blood Count 4.45, Hemoglobin 12.9, Hematocrit 39.1, Mean Corpuscular Volume 88, Mean Corpuscular Hemoglobin 28.9, Mean Corpuscular Hemoglobin Concent 32.9, Red Cell Distribution Width 13.9, Platelet Count 244, Mean Platelet Volume 7.4, Neutrophils (%) (Auto) 50.8, Lymphocytes (%) (Auto) 34.0, Monocytes (%) (Auto) 9.1, Eosinophils (%) (Auto) 5.2H, Basophils (%) (Auto ) 0.9, Sodium Level 136, Potassium Level 3.8, Chloride Level 107, Carbon Dioxide Level 24, Anion Gap 5, Blood Urea Nitrogen 11, Creatinine 0.7, Estimat Glomerular Filtration Rate , Glucose Level 111H, Calcium Level 8.9, Total Bilirubin 0.3, Aspartate Amino Transf (AST/SGOT) 17, Alanine Aminotransferase ( ALT/SGPT) 15, Alkaline Phosphatase 64, Total Protein 6.8, Albumin 2.5L, Globulin 4.3, Albumin/Globulin Ratio 0.6L Height (Feet): 5 Height (Inches): 7.00 Weight (Pounds): 116 General Appearance: WD/WN, no apparent distress, alert Jose Armando Rodgers M.D. Apr 05, 2018 13:01
--- NOTE | 2018-04-05 13:25 | Cardiology Report ---
APPROVED REPORT EXAM: Two-dimensional and M-mode echocardiogram with Doppler and color Doppler. INDICATION Hypertension/HCVD M-Mode DIMENSIONS IVSd1.4 (0.7-1.1cm)Left Atrium (MM)4.0 (1.6-4.0cm) LVDd3.9 (3.5-5.6cm)Aortic Root2.8 (2.0-3.7cm) PWd1.1 (0.7-1.1cm)Aortic Cusp Exc.1.6 (1.5-2.0cm) LVDs2.8 (2.5-4.0cm) PWs1.7 cm Normal left ventricular chamber size, systolic function and wall motion. Left ventricular ejection fraction estimated to be 55-60%. Mild left ventricular hypertrophy. Anterior Echo-free space, may be due to pericardial fat or effusion. All other cardiac chamber sizes are within normal limits. Focal aortic valve sclerosis with adequate cusp excursion. Mildly thickened mitral valve leaflets with normal excursion. Miild mitral annulus and aortic root calcification. Normal pulmonic valve structure. Normal tricuspid valve structure. IVC is normal in size with physiological collapse. A color flow and spectral Doppler study was performed and revealed: Mild aortic insufficiency. Mild mitral regurgitation. Mitral inflow indicate increased left atrial pressure, suggestive restrictive pattern (Grade III). Mild tricuspid regurgitation. Tricuspid systolic velocities suggests peak right ventricular systolic pressure of 62 mmHg, consistent with severe pulmonary hypertension. No pulmonic regurgitation present.
--- NOTE | 2018-04-05 13:35 | General Progress Note ---
Assessment/Plan Problem List: (1) Seizure disorder ICD Codes: G40.909 - Epilepsy, unspecified, not intractable, without status epilepticus SNOMED: 267852466 (2) HTN (hypertension) ICD Codes: I10 - Essential (primary) hypertension SNOMED: 22153328 (3) HLD (hyperlipidemia) ICD Codes: E78.5 - Hyperlipidemia, unspecified SNOMED: 16444373 (4) Advanced dementia ICD Codes: F03.90 - Unspecified dementia without behavioral disturbance SNOMED: 68871317 (5) Breakthrough seizure ICD Codes: G40.919 - Epilepsy, unspecified, intractable, without status epilepticus SNOMED: 493112407 (6) Toxic metabolic encephalopathy ICD Codes: G92 - Toxic encephalopathy SNOMED: 599638979 (7) H/O TIA (transient ischemic attack) and stroke ICD Codes: Z86.73 - Personal history of transient ischemic attack (TIA), and cerebral infarction without residual deficits SNOMED: 552601735, 957539321, 629394781 (8) UTI (urinary tract infection) ICD Codes: N39.0 - Urinary tract infection, site not specified SNOMED: 20136657 Qualifiers: Qualified Codes: N30.00 - Acute cystitis without hematuria (9) Elevated troponin ICD Codes: R74.8 - Abnormal levels of other serum enzymes SNOMED: 258231572, 660837124, 801305358 Status: stable Assessment/Plan Neurology Dr. Joseph consulted, not available until Cardiology consulted, appreciate rec's Trend trops 0.08 --> 0.09 --> 0.145 TTE with normal function but with severe pulmonary hypertension -- BNP elevated. check CXR Continue diurese with lasix 20mg qd Cont keppra 500mg IV BID for now -- on home dose of keppra 500mg BID CT head--prelim read neg, f/u final read EEG was abnormal showing generalized slowing with triphasic waves Check TSH, B12, folate, vit D Continue ceftriaxone for UTI (04/01-) F/u urine culture -- E. coli, sensitive to ceftriaxone Cont home meds including ASA, statin LDL 127, increase to atorvastatin 80 Pain control, bowel regimen Supportive care PT/OT DVT Prophylaxis: SCD, HSQ Code Status: Full Hospital Classification Declaration: Based on this initial evaluation, and depending on the patient's clinical course, I anticipate that this patient will require hospitalization for 1-3 days for AMS, seizure, and close respiratory/ hemodynamic monitoring. Disposition: Once the patient is stable to leave the hospital, I anticipate the patient will likely be discharged to the following environment: home with HH vs SNF I spent 32 minutes on this patient's case, and >50% was dedicated to counseling and/or care coordination. Discussed with patient/family, nursing staff, SW/CM, ER physician regarding clinical status, treatment course, and disposition planning. Time of note may not reflect time of encounter. Subjective Date patient seen: Apr 05, 2018 Time patient seen: 13:22 Allergies: Coded Allergies: PENICILLINS (Unverified Allergy, Unknown, 04/04/18) Uncoded Allergies: PENICILLIN (Allergy, Unknown, 04/01/18) Subjective AF, HDS sleeping, does not appear to be in any acute distress EEG was abnormal with generalized slowing and triphasic waves continues to mumble incoherent words. per daughter, this is patient's baseline Objective Last 24 Hour Vital Signs Date Time Temp Pulse Resp B/P (MAP) Pulse Ox O2 Delivery O2 Flow Rate FiO2 04/05/18 12:00 97.6 68 18 150/70 97 Room Air 97.6 04/05/18 12:00 63 04/05/18 08:00 97.6 69 18 155/96 96 Room Air 97.6 04/05/18 08:00 59 04/05/18 04:00 55 04/05/18 04:00 97.9 63 18 135/74 97 Room Air 97.9 04/05/18 00:00 59 04/05/18 00:00 97.8 55 18 139/79 100 Room Air 97.8 04/04/18 20:00 97.8 71 18 141/76 98 Room Air 97.8 04/04/18 20:00 66 04/04/18 16:00 57 04/04/18 15:31 97.5 62 18 137/68 97 Room Air 97.5 Intake and Output 04/04/18 04/05/18 19:00 07:00 Intake Total 1680 ml 1000 ml Output Total 1200 ml 800 ml Balance 480 ml 200 ml Intake Oral 360 ml IV Total 1320 ml 1000 ml Output Urine Total 1200 ml 800 ml Laboratory Tests 04/04/18 14:02: Pro-B-Type Natriuretic Peptide 3584H 04/05/18 06:20: White Blood Count 5.9, Red Blood Count 4.45, Hemoglobin 12.9, Hematocrit 39.1, Mean Corpuscular Volume 88, Mean Corpuscular Hemoglobin 28.9, Mean Corpuscular Hemoglobin Concent 32.9, Red Cell Distribution Width 13.9, Platelet Count 244, Mean Platelet Volume 7.4, Neutrophils (%) (Auto) 50.8, Lymphocytes (%) (Auto) 34.0, Monocytes (%) (Auto) 9.1, Eosinophils (%) (Auto) 5.2H, Basophils (%) (Auto ) 0.9, Sodium Level 136, Potassium Level 3.8, Chloride Level 107, Carbon Dioxide Level 24, Anion Gap 5, Blood Urea Nitrogen 11, Creatinine 0.7, Estimat Glomerular Filtration Rate , Glucose Level 111H, Calcium Level 8.9, Total Bilirubin 0.3, Aspartate Amino Transf (AST/SGOT) 17, Alanine Aminotransferase ( ALT/SGPT) 15, Alkaline Phosphatase 64, Total Protein 6.8, Albumin 2.5L, Globulin 4.3, Albumin/Globulin Ratio 0.6L Height (Feet): 5 Height (Inches): 7.00 Weight (Pounds): 116 General Appearance: no apparent distress, other - sleeping EENT: PERRL/EOMI, normal ENT inspection Neck: non-tender, normal alignment, supple Cardiovascular: normal peripheral pulses, normal rate, regular rhythm Respiratory/Chest: chest wall non-tender, lungs clear, normal breath sounds Abdomen: normal bowel sounds, non tender, soft Neurologic: bead wire taper II-XII grossly normal Skin: normal pigmentation, warm/dry Chiquita Del Real NP Apr 05, 2018 13:35
--- NOTE | 2018-04-05 14:20 | Cardiology Report ---
APPROVED REPORT EKG Measurement Heart [id number] Normal sinus rhythm with sinus arrhythmia Left axis deviation Nonspecific T wave abnormality Abnormal ECG
[2018-04-05] MEDS ORDERED: D5 1/2NS 1000ml IV ONE (15:49)
--- NOTE | 2018-04-05 16:02 | Cardiology Progress Note ---
Assessment/Plan Status: doing well, stable, progressing Assessment/Plan 87y/o female with pmh of DM2, HTN, HLD, TIA, advanced dementia, seizure d/o (on keppra) who presents with seizure 1) Trend troponin/EKG 2) No heparin gtt - no chest pain currently 3) Aspirin 4) Statin 5) IV antibiotics for UTI 6) Continue Keppra 7) TTE reviewed, normal LV function but severe pulmonary hypertension, Monitor CXR and BNP 8) No indication for cardiac cath at this time 9) Outpatient stress test 10 Recommend mild diuresis for elevated filling pressures and restrictive diastolic dysfunction 11) Seizure work up, MRI, EEG, neuro consult 12) Physical therapy/OT/supportive care Subjective Cardiovascular: Reports: no symptoms Respiratory: Reports: no symptoms Gastrointestinal/Abdominal: Reports: no symptoms Genitourinary: Reports: no symptoms Subjective No acute events. Tolerated PO. Family at bedside, no seizures Troponin mildly elevated. Echo with Grade III diastolic dysfunction and PAH, normal LV function Mental status improved Objective Last 24 Hour Vital Signs Date Time Temp Pulse Resp B/P (MAP) Pulse Ox O2 Delivery O2 Flow Rate FiO2 04/05/18 12:00 97.6 68 18 150/70 97 Room Air 97.6 04/05/18 12:00 63 04/05/18 08:00 97.6 69 18 155/96 96 Room Air 97.6 04/05/18 08:00 59 04/05/18 04:00 55 04/05/18 04:00 97.9 63 18 135/74 97 Room Air 97.9 04/05/18 00:00 59 04/05/18 00:00 97.8 55 18 139/79 100 Room Air 97.8 04/04/18 20:00 97.8 71 18 141/76 98 Room Air 97.8 04/04/18 20:00 66 04/04/18 16:00 57 General Appearance: no apparent distress EENT: PERRL/EOMI Neck: non-tender Rhythm: NSR Cardiovascular: normal peripheral pulses Respiratory/Chest: chest wall non-tender Abdomen: normal bowel sounds Extremities: normal range of motion Neurologic: director process II-XII grossly normal Intake and Output 04/04/18 04/05/18 19:00 07:00 Intake Total 1680 ml 1000 ml Output Total 1200 ml 800 ml Balance 480 ml 200 ml Intake Oral 360 ml IV Total 1320 ml 1000 ml Output Urine Total 1200 ml 800 ml Laboratory Tests Test 04/05/18 06:20 White Blood Count 5.9 K/UL (4.8-10.8) Red Blood Count 4.45 M/UL (4.20-5.40) Hemoglobin 12.9 G/DL (12.0-16.0) Hematocrit 39.1 % (37.0-47.0) Mean Corpuscular Volume 88 FL (80-99) Mean Corpuscular Hemoglobin 28.9 PG (27.0-31.0) Mean Corpuscular Hemoglobin Concent 32.9 G/DL (32.0-36.0) Red Cell Distribution Width 13.9 % (11.6-14.8) Platelet Count 244 K/UL (150-450) Mean Platelet Volume 7.4 FL (6.5-10.1) Neutrophils (%) (Auto) 50.8 % (45.0-75.0) Lymphocytes (%) (Auto) 34.0 % (20.0-45.0) Monocytes (%) (Auto) 9.1 % (1.0-10.0) Eosinophils (%) (Auto) 5.2 % (0.0-3.0) H Basophils (%) (Auto) 0.9 % (0.0-2.0) Sodium Level 136 MMOL/L (136-145) Potassium Level 3.8 MMOL/L (3.5-5.1) Chloride Level 107 MMOL/L (98-107) Carbon Dioxide Level 24 MMOL/L (21-32) Anion Gap 5 mmol/L (5-15) Blood Urea Nitrogen 11 mg/dL (7-18) Creatinine 0.7 MG/DL (0.55-1.30) Estimat Glomerular Filtration Rate mL/min (>60) Glucose Level 111 MG/DL (74-106) H Calcium Level 8.9 MG/DL (8.5-10.1) Total Bilirubin 0.3 MG/DL (0.2-1.0) Aspartate Amino Transf (AST/SGOT) 17 U/L (15-37) Alanine Aminotransferase (ALT/SGPT) 15 U/L (12-78) Alkaline Phosphatase 64 U/L (46-116) Total Protein 6.8 G/DL (6.4-8.2) Albumin 2.5 G/DL (3.4-5.0) L Globulin 4.3 g/dL Albumin/Globulin Ratio 0.6 (1.0-2.7) L Jake Fernandez M.D. Apr 05, 2018 16:02
--- NOTE | 2018-04-05 22:07 | Consultation ---
Consult Note Consult Note NEUROLOGY CONSULTATION: Full note dictated #[id number] 87 y/o, RH, BF with PH of HTN, DM, DL, CVD with prior stroke, dementia and seizure disorder with the last seizure 1-2 years ago, who was hospitalized following a single generalized TC seizure that was prolonged. She is on Keppra 500 mg q12 and the seizures are relatively well controlled. ON EXAM: Oriented to self only. Significantly aphasic Mild right VII central Generally weak and apractic. Responds to DP. Globally diminished DTRs Unable to test stance & gait. IMPRESSION: Single breakthrough GTC seizure. EEG with moderate encephalopathy and triphasics. REC: Continue Keppra 500 mg q 12 H. Aggressive treatment of any infectious processes in the future. Escobar Joseph M.D., M.S.P.H. ESCOBAR JOSEPH Apr 05, 2018 22:07
[2018-04-05] MEDS: Atorvastatin 80mg tab ORAL SCH (22:30)
[2018-04-06] VITALS: BP 118/63
[2018-04-06] MEDS: D5 1/2NS 1,000 ML IV SCH ×2 (02:15→22:31)
[2018-04-06 04:00] VITALS: BP 125/65
[2018-04-06 07:19] LABS: ANION GAP 10 mmol/L (5-15); BLOOD UREA NITROGEN 14 mg/dL (7-18); CALCIUM 8.9 MG/DL (8.5-10.1); CARBON DIOXIDE 24 MMOL/L (21-32); CHLORIDE 106 MMOL/L (98-107); CREATININE 0.7 MG/DL (0.55-1.30); POTASSIUM 4.1 MMOL/L (3.5-5.1); SODIUM 140 MMOL/L (136-145)
[2018-04-06 07:49] LABS: BASOPHILS % (AUTO) 1.1 % (0.0-2.0); EOSINOPHILS % (AUTO) 6.3 % (0.0-3.0); HEMATOCRIT 40.5 % (37.0-47.0); HEMOGLOBIN 12.9 G/DL (12.0-16.0); LYMPHOCYTES % (AUTO) 33.9 % (20.0-45.0); MEAN CORPUSCULAR VOLUME 89 FL (80-99); MONOCYTES % (AUTO) 9.8 % (1.0-10.0); NEUTROPHILS % (AUTO) 48.9 % (45.0-75.0); PLATELET COUNT 232 K/UL (150-450); RED BLOOD COUNT 4.56 M/UL (4.20-5.40); RED CELL DISTRIBUTION WIDTH 13.9 % (11.6-14.8); WHITE BLOOD COUNT 4.8 K/UL (4.8-10.8)
[2018-04-06] MEDS: Docusate 100mg cap ORAL SCH ×2 (08:11→21:01)
[2018-04-06] MEDS: Aspirin Baby 81mg ORAL SCH (08:11)
[2018-04-06] MEDS: Heparin 5000 units/ml inj SUBQ SCH ×2 (08:12→21:02)
[2018-04-06] MEDS: levETIRAcetam 500mg/NS100ml 100 ML IVPB SCH ×2 (08:22→21:01)
[2018-04-06] MEDS: cefTRIAXone 1 GM in D5W 110 ML IVPB SCH (08:22)
[2018-04-06 09:00] VITALS: BP 110/63
--- NOTE | 2018-04-06 10:00 | Consultation ---
DATE OF CONSULTATION: 04/05/2018 NEUROLOGY CONSULTATION CONSULTING PHYSICIAN: Pancho Joseph M.D. REQUESTING PHYSICIAN: Prisca Mejia M.D. HISTORY: Ms. Elaine Morris is an 87-year-old, right-handed, black lady, who does have a past history of hypertension, diabetes mellitus, dyslipidemia, cerebrovascular disease with a prior stroke, and advanced dementia. She also has a history of seizures. The exact details of the seizure history are unknown. However, her last seizure was approximately a year or two ago. She was hospitalized for a generalized tonic-clonic seizure that was prolonged and this consultation was requested to evaluate and manage the patient's seizure disorder. The patient has been on Keppra 500 mg q 12 hours and her seizures are relatively well controlled, with being seizure free for a year or two. Since she has been in the hospital, she has been diagnosed with urinary tract infection. She has not had any further seizures. She herself is unable to give any history because she is aphasic. PAST MEDICAL HISTORY: Significant for hypertension, diabetes mellitus, dyslipidemia, cerebrovascular disease with stroke - the exact details of which are unknown to us, dementia of an advanced degree, and a seizure disorder. FAMILY HISTORY: Unavailable. 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 Work: Unknown. Habits: Unknown. PRESENT MEDICATIONS: Aspirin 81 mg daily, atorvastatin, lorazepam p.r.n., Lasix, Keppra 500 mg intravenously q.12 hours, ceftriaxone, DSS, heparin for DVT prophylaxis, Tylenol p.r.n., Zofran p.r.n., and MiraLAX p.r.n. PHYSICAL EXAMINATION: GENERAL: She is a well-developed, relatively well-nourished, black lady, lying in bed, in no acute distress. VITAL SIGNS: Pulse 71/minute, blood pressure 147/72 mmHg, respirations 18/minute, and temperature 97.5 degrees Fahrenheit. HEAD: Normocephalic and atraumatic. NECK: No neck rigidity was observed. EENT: Examination benign. NEUROLOGIC EXAMINATION: MENTAL STATUS EXAMINATION: She was awake and alert, but significantly aphasic. She was oriented to self only. She was unable to cooperate for further mental status testing. SPEECH: She had no dysarthria. LANGUAGE: She had problems with comprehension and expression of language. CRANIAL NERVE EXAMINATION: II: She was unable to cooperate for confrontation testing. She did blink to threat. III, IV & : External ocular movements are full and the pupils 3 mm in diameter, equal, round, regular, and reactive to light. V: She had normal facial sensations and the temporales, masseters, and pterygoids functioned normally. VII: She had a mild right seventh central facial paresis. VIII: She seemed to be able to hear and had no nystagmus. IX: The palate moved symmetrically on phonation. X: She had no hoarseness of voice. XI: The sternocleidomastoids and trapezii functioned normally. XII: The tongue was in the midline without any fasciculations or atrophy. MOTOR SYSTEM: The tone was increased in all four extremities with gegenhalten and some spasticity in both lower extremities. Examination of muscle mass revealed wasting of the small hand and foot muscles. In addition, she also had bilateral ankle cord contractures. Examination of power was impossible to perform on individual muscle groups. However, she moved all four extremities on command, but was generally weak. In addition, she was also significantly apractic. SENSORY EXAMINATION: She responded appropriately to deep pain. She was unable to cooperate for the sensory modalities. REFLEXES: Trace+ and bilaterally symmetrical at the biceps, triceps, brachioradialis, and knees. 0 at both ankles. The plantar responses were flexor bilaterally. COORDINATION, STANCE & GAIT: Could not be tested. DIAGNOSTIC IMPRESSION: 1. Ms. Elaine Morris is an 87-year-old, right-handed, black lady, who does have a past history of hypertension, diabetes mellitus, dyslipidemia, cerebrovascular disease with a prior stroke, advanced dementia, and a seizure disorder with infrequent seizures with the last seizure being approximately a year or two ago. She was hospitalized after having had a single generalized tonic-clonic seizure that was prolonged. 2. On neurological examination, at this time, she is severely aphasic making further mental status testing quite difficult. She is oriented to self only. She has global cerebral dysfunction, has a mild right seventh central facial paresis, is generally weak and apractic, has globally diminished deep tendon reflexes, and is unable to stand and walk. 3. The EEG performed on 04/04/2018 revealed an encephalopathy of a moderate degree with a toxic metabolic component as evidenced by the triphasic waveforms. 4. By report, the CT scan of the brain did not reveal anything of an acute nature, however, the images are unavailable on her medical record to review. 5. The patient's history and neurological examination are most compatible with a breakthrough seizure in the patient, who has a prior history of seizures, who has a significant acute urinary tract infection at this point in time. The most likely etiology for the breakthrough seizure would be a seizure provoked by the acute infection. RECOMMENDATIONS: 1. Agree with management thus far. 2. Would continue the patient on Keppra 500 mg q 12 hours, but the drug can be changed to the oral form if the patient can ingest oral drugs. 3. If the patient does develop any infectious processes in the future, they should be treated aggressively and rapidly. Thank you for entrusting me with the care of Ms. Morris. I shall follow her with you. Pancho Joseph M.D., M.S.P.H. DR: LUKAS JOB#: [id number] MTDD
--- NOTE | 2018-04-06 10:00 | Electroencephalogram ---
DATE OF PROCEDURE: 04/04/2018 REQUESTING PHYSICIAN: Prisca Mejia M.D. HISTORY: This EEG was performed on an 87-year-old lady with a history of advanced dementia and epilepsy. The purpose of this EEG was to evaluate the patient for ongoing ictal or interictal phenomena and to better delineate the type of seizure disorder. TECHNICAL NOTE: This EEG was performed on a [employer] Unit with electrodes placed on the scalp according to the International 10-20 system. [id number] and [id number]-[id number] montages were used. The EEG was technically satisfactory and was performed in the awake, drowsy and sleep states. OBSERVATIONS: In the best awake state, the background activity consisted of 6.5-7 Hz posterior rhythmic theta activity. Drowsiness was characterized by irregular 4-5 Hz theta with intermixed delta frequencies, and triphasic waveforms with an anterior to posterior gradient. Stage II sleep was characterized by further slowing of the background in the delta and theta range, presence of vertex waves, and 10-12 Hz sleep spindles. No definite focal abnormalities or epileptiform discharges were seen. IMPRESSION: This is an abnormal EEG characterized by: 1. Slowing of the background in the 6.5-7 Hz theta range. 2. The presence of triphasic waveforms seen during drowsiness. 3. The presence of slow 10-12 Hz sleep spindles seen during sleep. COMMENT: This study is consistent with: 1. An encephalopathy of a moderate degree. 2. A possible toxic metabolic component to encephalopathy as evidenced by the triphasic waveforms. Pancho Joseph M.D., M.S.P.H. DR: ZACKARY JOB#: [id number] [facility]apo
[2018-04-06 12:00] VITALS: BP 155/84
[2018-04-06 16:00] VITALS: BP 118/62
--- NOTE | 2018-04-06 16:01 | General Progress Note ---
Assessment/Plan Status: stable Assessment/Plan dementia Anxiety d/o Ativan prn Subjective Date patient seen: Apr 06, 2018 Neurologic/Psychiatric: Reports: anxiety, depressed Allergies: Coded Allergies: PENICILLINS (Unverified Allergy, Unknown, 04/04/18) Uncoded Allergies: PENICILLIN (Allergy, Unknown, 04/01/18) Subjective the pt is nonverbal Objective Last 24 Hour Vital Signs Date Time Temp Pulse Resp B/P (MAP) Pulse Ox O2 Delivery O2 Flow Rate FiO2 04/06/18 12:00 63 04/06/18 12:00 98.7 66 20 155/84 99 Room Air 98.7 66 04/06/18 09:00 97.1 77 20 110/63 99 Room Air 97.1 77 04/06/18 08:00 57 04/06/18 04:00 97.0 62 16 125/65 94 Room Air 97.0 62 04/06/18 04:00 57 04/06/18 00:00 62 04/06/18 00:00 97.3 66 16 118/63 100 Room Air 97.3 04/05/18 20:00 69 04/05/18 19:58 97.5 71 16 147/72 100 97.5 04/05/18 19:52 97.5 71 16 147/72 100 Room Air 97.5 Intake and Output 04/05/18 04/06/18 19:00 07:00 Intake Total 1480 ml 700 ml Output Total 1200 ml 600 ml Balance 280 ml 100 ml Intake Oral 360 ml IV Total 1120 ml 700 ml Output Urine Total 1200 ml 600 ml Laboratory Tests 04/06/18 05:55: White Blood Count 4.8, Red Blood Count 4.56, Hemoglobin 12.9, Hematocrit 40.5, Mean Corpuscular Volume 89, Mean Corpuscular Hemoglobin 28.2, Mean Corpuscular Hemoglobin Concent 31.8L, Red Cell Distribution Width 13.9, Platelet Count 232, Mean Platelet Volume 6.9, Neutrophils (%) (Auto) 48.9, Lymphocytes (%) (Auto) 33.9, Monocytes (%) (Auto) 9.8, Eosinophils (%) (Auto) 6.3H, Basophils (%) (Auto ) 1.1, Sodium Level 140, Potassium Level 4.1, Chloride Level 106, Carbon Dioxide Level 24, Anion Gap 10, Blood Urea Nitrogen 14, Creatinine 0.7, Estimat Glomerular Filtration Rate , Glucose Level 121H, Calcium Level 8.9 Height (Feet): 5 Height (Inches): 7.00 Weight (Pounds): 116 General Appearance: no apparent distress, alert Jose Armando Rodgers M.D. Apr 06, 2018 16:01
[2018-04-06] MEDS ORDERED: FUROSEMIDE20 M1 ORAL (16:39)
--- NOTE | 2018-04-06 16:43 | General Progress Note ---
Assessment/Plan Problem List: (1) Seizure disorder ICD Codes: G40.909 - Epilepsy, unspecified, not intractable, without status epilepticus SNOMED: 707457628 (2) HTN (hypertension) ICD Codes: I10 - Essential (primary) hypertension SNOMED: 91153990 (3) HLD (hyperlipidemia) ICD Codes: E78.5 - Hyperlipidemia, unspecified SNOMED: 22452524 (4) Advanced dementia ICD Codes: F03.90 - Unspecified dementia without behavioral disturbance SNOMED: 99515476 (5) Breakthrough seizure ICD Codes: G40.919 - Epilepsy, unspecified, intractable, without status epilepticus SNOMED: 165164253 (6) Toxic metabolic encephalopathy ICD Codes: G92 - Toxic encephalopathy SNOMED: 812186406 (7) H/O TIA (transient ischemic attack) and stroke ICD Codes: Z86.73 - Personal history of transient ischemic attack (TIA), and cerebral infarction without residual deficits SNOMED: 750973081, 447067865, 300822869 (8) UTI (urinary tract infection) ICD Codes: N39.0 - Urinary tract infection, site not specified SNOMED: 63519501 Qualifiers: Qualified Codes: N30.00 - Acute cystitis without hematuria (9) Elevated troponin ICD Codes: R74.8 - Abnormal levels of other serum enzymes SNOMED: 195865231, 526135101, 345259727 Status: stable, progressing Assessment/Plan Neurology Dr. Joseph consulted, appreciate rec's Cardiology consulted, appreciate rec's Trend trops 0.08 --> 0.09 --> 0.145 TTE with normal function but with severe pulmonary hypertension -- BNP elevated. Continue diurese with lasix 20mg qd Cont home dose of keppra 500mg BID CT head--prelim read neg, f/u final read EEG was abnormal showing generalized slowing with triphasic waves Check TSH, B12, folate, vit D -- normal s/p ceftriaxone for UTI (04/01-04/06) F/u urine culture -- E. coli, sensitive to ceftriaxone Cont home meds including ASA, statin LDL 127, increased to atorvastatin 80 Pain control, bowel regimen Supportive care PT/OT CLEARED FOR DISCHARGE PER NEUROLOGY AND CARDIOLOGY FOR SNF. DVT Prophylaxis: SCD, HSQ Code Status: Full Hospital Classification Declaration: Based on this initial evaluation, and depending on the patient's clinical course, I anticipate that this patient will require hospitalization for 1-3 days for AMS, seizure, and close respiratory/ hemodynamic monitoring. Disposition: Once the patient is stable to leave the hospital, I anticipate the patient will likely be discharged to the following environment: SNF. [facility] I spent 32 minutes on this patient's case, and >50% was dedicated to counseling and/or care coordination. Discussed with patient/family, nursing staff, SW/CM, ER physician regarding clinical status, treatment course, and disposition planning. Time of note may not reflect time of encounter. Subjective Date patient seen: Apr 06, 2018 Time patient seen: 16:40 Allergies: Coded Allergies: PENICILLINS (Unverified Allergy, Unknown, 04/04/18) Uncoded Allergies: PENICILLIN (Allergy, Unknown, 04/01/18) Subjective - doing well. alert and oriented to self - seen by neuro, cleared for discharge - pending SNF placement - d/w daughter Objective Last 24 Hour Vital Signs Date Time Temp Pulse Resp B/P (MAP) Pulse Ox O2 Delivery O2 Flow Rate FiO2 04/06/18 12:00 63 04/06/18 12:00 98.7 66 20 155/84 99 Room Air 98.7 66 04/06/18 09:00 97.1 77 20 110/63 99 Room Air 97.1 77 04/06/18 08:00 57 04/06/18 04:00 97.0 62 16 125/65 94 Room Air 97.0 62 04/06/18 04:00 57 04/06/18 00:00 62 04/06/18 00:00 97.3 66 16 118/63 100 Room Air 97.3 04/05/18 20:00 69 04/05/18 19:58 97.5 71 16 147/72 100 97.5 04/05/18 19:52 97.5 71 16 147/72 100 Room Air 97.5 Intake and Output 04/05/18 04/06/18 19:00 07:00 Intake Total 1480 ml 700 ml Output Total 1200 ml 600 ml Balance 280 ml 100 ml Intake Oral 360 ml IV Total 1120 ml 700 ml Output Urine Total 1200 ml 600 ml Laboratory Tests 04/06/18 05:55: White Blood Count 4.8, Red Blood Count 4.56, Hemoglobin 12.9, Hematocrit 40.5, Mean Corpuscular Volume 89, Mean Corpuscular Hemoglobin 28.2, Mean Corpuscular Hemoglobin Concent 31.8L, Red Cell Distribution Width 13.9, Platelet Count 232, Mean Platelet Volume 6.9, Neutrophils (%) (Auto) 48.9, Lymphocytes (%) (Auto) 33.9, Monocytes (%) (Auto) 9.8, Eosinophils (%) (Auto) 6.3H, Basophils (%) (Auto ) 1.1, Sodium Level 140, Potassium Level 4.1, Chloride Level 106, Carbon Dioxide Level 24, Anion Gap 10, Blood Urea Nitrogen 14, Creatinine 0.7, Estimat Glomerular Filtration Rate , Glucose Level 121H, Calcium Level 8.9 Height (Feet): 5 Height (Inches): 7.00 Weight (Pounds): 116 General Appearance: no apparent distress, alert EENT: PERRL/EOMI, normal ENT inspection Neck: non-tender, normal alignment, supple Cardiovascular: normal peripheral pulses, normal rate, regular rhythm Respiratory/Chest: chest wall non-tender, lungs clear, normal breath sounds Abdomen: normal bowel sounds, non tender, soft Neurologic: tie inspector II-XII grossly normal, no motor/sensory deficits, alert Skin: normal pigmentation, warm/dry Chiquita Del Real NP Apr 06, 2018 16:43
[2018-04-06] MEDS ORDERED: LIPITOR80 MG ORAL (16:45)
--- NOTE | 2018-04-06 17:15 | Cardiology Progress Note ---
Assessment/Plan Status: stable Assessment/Plan 87y/o female with pmh of DM2, HTN, HLD, TIA, advanced dementia, seizure d/o (on keppra) who presents with seizure 1) Trend troponin/EKG 2) No heparin gtt - no chest pain currently 3) Aspirin 4) Statin 5) IV antibiotics for UTI 6) Continue Keppra 7) TTE reviewed, normal LV function but severe pulmonary hypertension, Monitor CXR and BNP 8) No indication for cardiac cath at this time 9) Outpatient stress test 10 Recommend mild diuresis for elevated filling pressures and restrictive diastolic dysfunction 11) Seizure work up, MRI, EEG, neuro consult 12) Physical therapy/OT/supportive care 13) ok to transfer to SNF Subjective Cardiovascular: Reports: no symptoms Respiratory: Reports: no symptoms Genitourinary: Reports: no symptoms Subjective No acute events. Tolerated PO. Family at bedside, no seizures Troponin mildly elevated. Echo with Grade III diastolic dysfunction and PAH, normal LV function Mental status improved Awaiting transfer back to [facility] Objective Last 24 Hour Vital Signs Date Time Temp Pulse Resp B/P (MAP) Pulse Ox O2 Delivery O2 Flow Rate FiO2 04/06/18 16:00 97.9 66 17 118/62 98 97.9 66 66 04/06/18 16:00 68 04/06/18 12:00 63 04/06/18 12:00 98.7 66 20 155/84 99 Room Air 98.7 66 04/06/18 09:00 97.1 77 20 110/63 99 Room Air 97.1 77 04/06/18 08:00 57 04/06/18 04:00 97.0 62 16 125/65 94 Room Air 97.0 62 04/06/18 04:00 57 04/06/18 00:00 62 04/06/18 00:00 97.3 66 16 118/63 100 Room Air 97.3 04/05/18 20:00 69 04/05/18 19:58 97.5 71 16 147/72 100 97.5 04/05/18 19:52 97.5 71 16 147/72 100 Room Air 97.5 General Appearance: no apparent distress EENT: PERRL/EOMI Neck: non-tender Rhythm: NSR Cardiovascular: normal peripheral pulses Respiratory/Chest: chest wall non-tender Abdomen: normal bowel sounds Extremities: normal range of motion Neurologic: vegetable scullion II-XII grossly normal Intake and Output 04/05/18 04/06/18 19:00 07:00 Intake Total 1480 ml 700 ml Output Total 1200 ml 600 ml Balance 280 ml 100 ml Intake Oral 360 ml IV Total 1120 ml 700 ml Output Urine Total 1200 ml 600 ml Laboratory Tests Test 04/06/18 05:55 White Blood Count 4.8 K/UL (4.8-10.8) Red Blood Count 4.56 M/UL (4.20-5.40) Hemoglobin 12.9 G/DL (12.0-16.0) Hematocrit 40.5 % (37.0-47.0) Mean Corpuscular Volume 89 FL (80-99) Mean Corpuscular Hemoglobin 28.2 PG (27.0-31.0) Mean Corpuscular Hemoglobin Concent 31.8 G/DL (32.0-36.0) L Red Cell Distribution Width 13.9 % (11.6-14.8) Platelet Count 232 K/UL (150-450) Mean Platelet Volume 6.9 FL (6.5-10.1) Neutrophils (%) (Auto) 48.9 % (45.0-75.0) Lymphocytes (%) (Auto) 33.9 % (20.0-45.0) Monocytes (%) (Auto) 9.8 % (1.0-10.0) Eosinophils (%) (Auto) 6.3 % (0.0-3.0) H Basophils (%) (Auto) 1.1 % (0.0-2.0) Sodium Level 140 MMOL/L (136-145) Potassium Level 4.1 MMOL/L (3.5-5.1) Chloride Level 106 MMOL/L (98-107) Carbon Dioxide Level 24 MMOL/L (21-32) Anion Gap 10 mmol/L (5-15) Blood Urea Nitrogen 14 mg/dL (7-18) Creatinine 0.7 MG/DL (0.55-1.30) Estimat Glomerular Filtration Rate mL/min (>60) Glucose Level 121 MG/DL (74-106) H Calcium Level 8.9 MG/DL (8.5-10.1) Jake Fernandez M.D. Apr 06, 2018 17:15
[2018-04-06 20:00] VITALS: BP 118/62
[2018-04-06] MEDS: Atorvastatin 80mg tab ORAL SCH (21:01)
--- NOTE | 2018-04-06 21:31 | Neurology Progress Note ---
Interim History Interim History Interim History Ms. Morris feels better. She is awake and more alert today. She however is significantly aphasic and unable to communicate well. She has been seizure-free. She continues to be cognitively impoverished. She has not been out of bed. Review of Systems Neuro Review of Systems Benign. Objective Physical Exam Last Vital Signs Date Time Temp Pulse Resp B/P (MAP) Pulse Ox O2 Delivery O2 Flow Rate FiO2 04/06/18 16:00 97.9 66 17 118/62 98 97.9 66 66 04/06/18 12:00 Room Air Laboratory Tests Test 04/06/18 05:55 White Blood Count 4.8 K/UL (4.8-10.8) Red Blood Count 4.56 M/UL (4.20-5.40) Hemoglobin 12.9 G/DL (12.0-16.0) Hematocrit 40.5 % (37.0-47.0) Mean Corpuscular Volume 89 FL (80-99) Mean Corpuscular Hemoglobin 28.2 PG (27.0-31.0) Mean Corpuscular Hemoglobin Concent 31.8 G/DL (32.0-36.0) L Red Cell Distribution Width 13.9 % (11.6-14.8) Platelet Count 232 K/UL (150-450) Mean Platelet Volume 6.9 FL (6.5-10.1) Neutrophils (%) (Auto) 48.9 % (45.0-75.0) Lymphocytes (%) (Auto) 33.9 % (20.0-45.0) Monocytes (%) (Auto) 9.8 % (1.0-10.0) Eosinophils (%) (Auto) 6.3 % (0.0-3.0) H Basophils (%) (Auto) 1.1 % (0.0-2.0) Sodium Level 140 MMOL/L (136-145) Potassium Level 4.1 MMOL/L (3.5-5.1) Chloride Level 106 MMOL/L (98-107) Carbon Dioxide Level 24 MMOL/L (21-32) Anion Gap 10 mmol/L (5-15) Blood Urea Nitrogen 14 mg/dL (7-18) Creatinine 0.7 MG/DL (0.55-1.30) Estimat Glomerular Filtration Rate mL/min (>60) Glucose Level 121 MG/DL (74-106) H Calcium Level 8.9 MG/DL (8.5-10.1) Neurologic Exam Objective PHYSICAL EXAMINATION: GENERAL: She is a well-developed, relatively well-nourished, black lady, lying in bed, in no acute distress. HEAD: Normocephalic and atraumatic. NECK: No neck rigidity was observed. EENT: Examination benign. NEUROLOGIC EXAMINATION: MENTAL STATUS EXAMINATION: She was awake and alert, but significantly aphasic. She was oriented to self only. She was unable to cooperate for further mental status testing. SPEECH: She had no dysarthria. LANGUAGE: She had problems with comprehension and expression of language. CRANIAL NERVE EXAMINATION: II: She was unable to cooperate for confrontation testing. She did blink to threat. III, IV & : External ocular movements are full and the pupils 3 mm in diameter, equal, round, regular, and reactive to light. V: She had normal facial sensations and the temporales, masseters, and pterygoids functioned normally. VII: She had a mild right seventh central facial paresis. VIII: She seemed to be able to hear and had no nystagmus. IX: The palate moved symmetrically on phonation. X: She had no hoarseness of voice. XI: The sternocleidomastoids and trapezii functioned normally. XII: The tongue was in the midline without any fasciculations or atrophy. MOTOR SYSTEM: The tone was increased in all four extremities with gegenhalten and spasticity in both lower extremities. Examination of muscle mass revealed wasting of the small hand and foot muscles. In addition, she also had bilateral ankle cord contractures. Examination of power was impossible to perform on individual muscle groups. However, she moved all four extremities on command and gave me good hand complex director, but was generally weak. In addition, she was also significantly apractic. SENSORY EXAMINATION: She responded appropriately to deep pain. She was unable to cooperate for the sensory modalities. REFLEXES: Trace+ and bilaterally symmetrical at the biceps, triceps, brachioradialis, and knees. 0 at both ankles. The plantar responses were flexor bilaterally. COORDINATION, STANCE & GAIT: Could not be tested. Impression/Recommendations Diagnostic Impression 1. Ms. Elaine Morris is an 87-year-old, right-handed, black lady, who does have a past history of hypertension, diabetes mellitus, dyslipidemia, cerebrovascular disease with a prior stroke, advanced dementia, and a seizure disorder with infrequent seizures with the last seizure being approximately a year or two ago. She was hospitalized after having had a single generalized tonic-clonic seizure that was prolonged. 2. She feels better. She is awake and more alert today. She however is significantly aphasic and unable to communicate well. She has been seizure- free. She continues to be cognitively impoverished. She has not been out of bed. 3. On neurological examination, at this time, she is severely aphasic making further mental status testing quite difficult. She is oriented to self only. She has global cerebral dysfunction, has a mild right seventh central facial paresis, is generally weak and apractic, has globally diminished deep tendon reflexes, and is unable to stand and walk. 4. The EEG performed on 04/04/2018 revealed an encephalopathy of a moderate degree with a toxic metabolic component as evidenced by the triphasic waveforms. 5. By report, the CT scan of the brain did not reveal anything of an acute nature, however, the images are still unavailable on her EMR to review. 6. The patient's history and neurological examination are most compatible with a breakthrough seizure in this patient, who has a prior history of seizures, who has a significant acute urinary tract infection at this point in time. The most likely etiology for the breakthrough seizure would be a seizure provoked by the acute infection. Recommendations 1. Continue present management. 2. Continue the patient on Keppra 500 mg q 12 hours PO. 3. If the patient does develop any infectious processes in the future, they should be treated aggressively and rapidly. Escobar Joseph M.D., M.S.P.[facility] Apr 06, 2018 21:31
[2018-04-07] VITALS: BP 150/70
[2018-04-07] MEDS ORDERED: D5 1/2NS 1,000 ML IV SCH (00:30)
[2018-04-07] MEDS ORDERED: Acetaminophen 650 MG SUPP RECTAL PRN ×2 (02:15)
[2018-04-07 04:00] VITALS: BP 140/77
[2018-04-07] MEDS ORDERED: LORazepam 0.5mg tab ORAL PRN (04:45)
[2018-04-07 08:28] VITALS: BP 136/69
[2018-04-07] MEDS ORDERED: D5NS 1000ml IV ONE (08:28)
[2018-04-07] MEDS ORDERED: levETIRAcetam 500mg/NS100ml 100 ML IVPB SCH (09:00)
[2018-04-07] MEDS ORDERED: cefTRIAXone 1 GM in D5W 110 ML IVPB SCH (09:00)
[2018-04-07] MEDS ORDERED: Aspirin Baby 81mg ORAL SCH (09:00)
[2018-04-07] MEDS ORDERED: Docusate 100mg cap ORAL SCH (09:00)
[2018-04-07] MEDS ORDERED: Heparin 5000 units/ml inj SUBQ SCH (09:00)
[2018-04-07 11:48] VITALS: BP 119/75
--- NOTE | 2018-04-07 12:02 | General Progress Note ---
Assessment/Plan Status: stable Assessment/Plan dementia Anxiety d/o Ativan prn Subjective Date patient seen: Apr 07, 2018 Neurologic/Psychiatric: Reports: emotional problems Allergies: Coded Allergies: PENICILLINS (Unverified Allergy, Unknown, 04/04/18) Uncoded Allergies: PENICILLIN (Allergy, Unknown, 04/01/18) Subjective the pt is nonverbal. No agitation Objective Last 24 Hour Vital Signs Date Time Temp Pulse Resp B/P (MAP) Pulse Ox O2 Delivery O2 Flow Rate FiO2 04/07/18 11:48 96.6 66 18 119/75 97 Room Air 96.6 04/07/18 08:28 97.1 65 18 136/69 100 Room Air 97.1 04/07/18 04:00 97.2 60 18 140/77 98 Room Air 97.2 04/07/18 00:00 97.1 66 18 150/70 95 Room Air 97.1 04/06/18 20:00 97.7 45 21 118/62 98 97.7 45 04/06/18 19:06 67 04/06/18 16:00 97.9 66 17 118/62 98 97.9 66 66 04/06/18 16:00 68 Intake and Output 04/06/18 04/07/18 19:00 07:00 Intake Total 1940 ml 300 ml Output Total 800 ml 850 ml Balance 1140 ml -550 ml Intake Oral 720 ml IV Total 1220 ml 300 ml Output Urine Total 800 ml 850 ml # Voids 1 # Bowel Movements 2 Height (Feet): 5 Height (Inches): 7.00 Weight (Pounds): 116 General Appearance: no apparent distress, alert, confused Jose Armando Rodgers M.D. Apr 07, 2018 12:01
--- NOTE | 2018-04-07 13:47 | Cardiology Progress Note ---
Assessment/Plan Status: stable, progressing, tolerating diet Assessment/Plan 87y/o female with pmh of DM2, HTN, HLD, TIA, advanced dementia, seizure d/o (on keppra) who presents with seizure 1) Trend troponin/EKG 2) No heparin gtt - no chest pain currently 3) Aspirin 4) Statin 5) Antibiotics for UTI 6) Continue Keppra 7) TTE reviewed, normal LV function but severe pulmonary hypertension, Monitor CXR and BNP 8) No indication for cardiac cath at this time 9) Outpatient stress test 10 Recommend mild diuresis for elevated filling pressures and restrictive diastolic dysfunction 11) Seizure work up, MRI, EEG, neuro consult 12) Physical therapy/OT/supportive care 13) ok to transfer to SNF Subjective Cardiovascular: Reports: no symptoms Respiratory: Reports: no symptoms Gastrointestinal/Abdominal: Reports: no symptoms Genitourinary: Reports: no symptoms Subjective No acute events. Tolerated PO. Family at bedside, no seizures Troponin mildly elevated. Echo with Grade III diastolic dysfunction and PAH, normal LV function Mental status improved Awaiting transfer back to [facility] Objective Last 24 Hour Vital Signs Date Time Temp Pulse Resp B/P (MAP) Pulse Ox O2 Delivery O2 Flow Rate FiO2 04/07/18 11:48 96.6 66 18 119/75 97 Room Air 96.6 04/07/18 08:28 97.1 65 18 136/69 100 Room Air 97.1 04/07/18 04:00 97.2 60 18 140/77 98 Room Air 97.2 04/07/18 00:00 97.1 66 18 150/70 95 Room Air 97.1 04/06/18 20:00 97.7 45 21 118/62 98 97.7 45 04/06/18 19:06 67 04/06/18 16:00 97.9 66 17 118/62 98 97.9 66 66 04/06/18 16:00 68 General Appearance: no apparent distress EENT: PERRL/EOMI Neck: non-tender Rhythm: NSR Respiratory/Chest: chest wall non-tender Abdomen: normal bowel sounds Extremities: normal range of motion 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 Apr 07, 2018 13:47
--- NOTE | 2018-04-07 15:43 | Discharge Summary ---
Discharge Summary Hospital Course Date of Admission Apr 01, 2018 at 17:46 Date of Discharge Apr 07, 2018 Admitting Diagnosis new onset seizure HPI Elaine Morris is a 87 year old female who was admitted on Apr 01, 2018 at 17: 46 for New Onset Seizure 87y/o female with pmh of DM2, HTN, HLD, TIA, advanced dementia, seizure d/o (on keppra) who presents with seizure. According to caregiver who witnessed episode , pt with diffuse body jerking for abt 10min. Afterwards pt somnolent/ lethargic. At baseline pt is A&Ox1 but able to respond to simple questions and follow simple commands. Per daughter, pt with h/o seizure d/o and last seizure was abt 1-2 years ago. Pt had been stable on keppra 500mg BID since. No reports of f/c, n/v, d//c, chest pain, SOB, head trauma, tongue biting, urinary/bowel incontinence. Pt had been experiencing increased R knee pain lately 2/2 arthritis. Pt normally ambulates minimally and only with assistance of another person. In ED, pt given keppra 500mg IV. Consultations Cardiology Neurology Procedures EEG Hospital Course Patient was admitted to telemetry given elevated troponins. Cardiology was consulted. TTE showed normal LVEF but severe pulmonary hypertension. Patient's BNP was elevated and patient was started on IV lasix. No indication for cardiac cath or stress test was needed at this time. Patient was also noted to have a UTI and was started on IV ceftriaxone. Patient's urine culture grew E. coli, which was sensitive to ceftriaxone. Neurology consultation was also requested given breakthrough seizure. CT brain was negative but EEG showed abnormal slowing with triphasic waves. Per neurology, this was part of her underlying dementia and no further interventions were needed at this time. Her home dose of keppra 500mg BID was recommended to be resumed per neurology. No changes were recommended as breakthrough seizure was likely caused by UTI. Patient was therefore cleared per neurology and cardiology with continued lasix 20mg qd and keppra 500mg BID upon discharge. Patient finished a 5 day course of IV ceftriaxone. Patient was hemodynamically stable prior to discharge. Plan of care was d/w daughter. Discharge Medications New Medications: Atorvastatin (Lipitor) 80 Mg Tablet 80 MG ORAL BEDTIME for 30 Days, #30 TAB Furosemide* (Lasix*) 20 Mg Tablet 20 MG ORAL DAILY for 30 Days, #30 TAB Continued Medications: Ascorbic Acid (Ascorbic Acid) 500 Mg Tab.chew 500 MG ORAL DAILY, TAB (This prescription has been renewed) Aspirin (Aspirin EC) 81 Mg Tablet.dr 81 MG ORAL DAILY, TAB (This prescription has been renewed) Levetiracetam (Keppra) 500 Mg Tablet 500 MG ORAL EVERY 12 HOURS, #60 TAB 0 Refills (This prescription has been renewed) Multivitamins* (Multivitamins*) 1 Each Tablet 1 TAB ORAL BID, TAB 0 Refills (This prescription has been renewed) Vitamin D (Vitamin D3) 400 Unit Tablet 2000 UNITS ORAL DAILY, TAB (This prescription has been renewed) Zinc Sulfate (Zinc Sulfate*) 220 Mg Capsule 220 MG ORAL DAILY, CAP 0 Refills (This prescription has been renewed) Discharge Condition Upon Discharge: improving, stable Discharge Disposition Patient was discharged to SNF/Subacute Facility(03), [facility] Discharge Diagnoses: (1) Elevated troponin (2) UTI (urinary tract infection) (3) H/O TIA (transient ischemic attack) and stroke (4) Toxic metabolic encephalopathy (5) Breakthrough seizure (6) HTN (hypertension) (7) HLD (hyperlipidemia) (8) Advanced dementia Chiquita Del Real NP Apr 07, 2018 15:43
[2018-04-07] MEDS ORDERED: Atorvastatin 80mg tab ORAL SCH (21:00)
[2018-04-07] MEDS ORDERED: Miralax 17gm pkt ORAL PRN (22:15)
== END 2018-04-07 14:30 | DRG 100 ==
LOC: EDUNIT# 17:08 → EDBD 17:08 → EMR 17:43 → 2E 17:46 → EDBEDREQ 18:02 → 4E 04-06 22:33
DX: G40.919 Epilepsy, unspecified, intractable, without status epilepticus (principal); G92 Toxic encephalopathy; N39.0 Urinary tract infection, site not specified; R47.01 Aphasia; E11.9 Type 2 diabetes mellitus without complications; I10 Essential (primary) hypertension; E78.5 Hyperlipidemia, unspecified; Z86.73 Personal history of transient ischemic attack (TIA), and cerebral infarction without residual deficits; F03.90 Unspecified dementia, unspecified severity, without behavioral disturbance, psychotic disturbance, mood disturbance, and anxiety; Z88.0 Allergy status to penicillin; R74.8 Abnormal levels of other serum enzymes; M24.572 Contracture, left ankle; M24.571 Contracture, right ankle; F41.9 Anxiety disorder, unspecified; I27.20 Pulmonary hypertension, unspecified
CPT/HCPCS: 36415; 70450; 71045; 80048; 80053; 80061; 80307; 80329; 81003; 82306; 82550; 82607; 82746; 82962; 83036; 83735; 83880; 84443; 84484; 85025; 87086; 87181; 93005; 93306; 95819; 99285